=== PATIENT | female | born 1980 | race Caucasian/White ===

== ENCOUNTER 2021-06-23 22:32 | Inpatient (IN) | payer MEDICAID ==
[~2021-06-23] VITALS: Ht 157.5 cm; Wt 74.1 kg
[2021-06-23] MEDS ORDERED: NS IV 1000 ML 1,000 ML IV SCH (22:45)
[2021-06-23] MEDS ORDERED: POTASSIUM CL 10MEQ/50ML IVPB 50 ML IV SCH (22:45)
[2021-06-24] VITALS (7 sets, daily range): BP systolic 90–108; BP diastolic 55–69
--- OUTSIDE RECORDS SUMMARY | 2021-06-24 00:29 | XMS REPORT | Clinical Summary ---
Author Author [facility] Organization [facility] Address Unknown Phone Unavailable Care Team Providers Care Tariff Clerk Name Role Phone Hermila Quezada PCP Source Comments Some departments are not documenting in the electronic medical record. If you d o not see the information that you expected, contact Release of Information in [facility] [employer] Information Management department at [phone] for further assistan ce in locating additional records.[facility] Allergies No Known Active Allergies Medications End Date Status Medication Sig Dispensed Refills Start Date Active insulin detemir U-100(+) Inject 10 mL 0 0 (LEVEMIR U-100 INSULIN) fifteen Units 1 100 unit/mL vial under the skin twice daily. Active insulin aspart U-100 Inject twelve 45 mL 0 (NOVOLOG FLEXPEN) 100 Units under 1 unit/mL (3 mL) injection the skin PEN three times daily with meals. Active insulin aspart U-100 Inject zero 45 mL 0 04/04 (NOVOLOG FLEXPEN) 100 Units to six 1 unit/mL (3 mL) injection Units under PEN the skin three times daily with meals. Active blood-glucose meter Use one strip 1 each 0 2 (ONETOUCH VERIO METER) as directed 1 kit three times daily before meals. ICD-10: Type 1 Diabetes with unspecified complications ; with terminal computer operator insulin use E10.9, Z79.4 Active blood sugar diagnostic Use one strip 300 strip 0 0 (ONETOUCH VERIO TEST as directed 1 STRIPS) test strip three times daily. ICD-10: Type 1 Diabetes with unspecified complications ; with [facility] insulin use E10.9, Z79.4 Active flash glucose sensor ICD-10: Type 1 each 0 /2 (FREESTYLE SAIMA 2 1 Diabetes 1 SENSOR) with unspecified complications ; with terminal computer operator insulin use E10.9, Z79.4 Active lancets 33 gauge Use one each 300 each 0 04/04/20 2 (ONETOUCH DELICA 33 as directed 1 GUAGE) 33 gauge three times daily. 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 Resolved Problems Problem Noted Date Resolved Date DKA (diabetic ketoacidoses) 03/31/2021 04/04/2021 Hyperkalemia 03/31/2021 04/04/2021 Acute renal failure with tubular necrosis 03/31/2021 04/04/2021 Type 2 diabetes mellitus with ketoacidosis, with long -term current use of 03/31/2021 03/31/2021 insulin Encounters Care Team Description Date Type Specialty Remigio Higginbotham MD Hall, Denzel Morrissey MD DKA (diabetic ketoacidoses) ([facility]) 03/31/2021 Hospital Intensive Care - Encounter 04/04/2021 03/31/2021 Travel from Last 3 Months Medical History Medical History Date Comments Type 1 diabetes (HCC) Social History Date Tobacco Use Types Packs/Day Years Used Never Assessed Sex Assigned at Date Recorded Not on file Last Filed Vital Signs Reading Time Taken Comments Vital Sign 108/82 04/04/2021 8:00 AM CDT Blood Pressure 68 04/04/2021 4:00 AM CDT Pulse 36.6 C (97.8 F) 04/04/2021 8:00 AM CDT Temperature - - Respiratory Rate 97% 04/04/2021 8:00 AM CDT Oxygen Saturation - - Inhaled Oxygen Concentration 46.8 kg (103 lb 2.8 oz) 03/31/2021 2:38 PM CDT Weight 165.1 cm (5' 5") 03/31/2021 2:38 PM CDT estimated Height 17.17 03/31/2021 2:38 PM CDT Body Mass Index Plan of Treatment Health Maintenance Due Date Last Done Comments HIV SCREENING 1995 DTAP/TDAP VACCINES (1 - 1998 Tdap) HEPATITIS C SCREENING 1998 PHYSICAL (COMPREHENSIVE) 1998 EXAM CERVICAL CANCER SCREENING 2001 BREAST CANCER SCREENING 2020 INFLUENZA VACCINE 07/12/2021 Procedures Comments Procedure Name Priority Date/Time Associated Diag nosis POC GLUCOSE 04/04/2021 11:57 AM CDT POC GLUCOSE 04/04/2021 8:30 AM CDT POC GLUCOSE 04/04/2021 5:05 AM CDT HC MAGNESIUM Routine 04/04/2021 5:05 AM CDT HC PHOSPHOROUS, SERUM Routine 04/04/2021 5:05 AM CDT HC COMPREHENSIVE Routine 04/04/2021 METABOLIC PANEL 5:05 AM CDT HC CBC W/ AUTOMATED DIFF STAT 04/04/2021 5:05 AM CDT POC GLUCOSE 04/03/2021 9:29 PM CDT POC GLUCOSE 04/03/2021 6:26 PM CDT HC MAGNESIUM Routine 04/03/2021 4:55 PM CDT HC PHOSPHOROUS, SERUM Routine 04/03/2021 4:55 PM CDT HC COMPREHENSIVE Routine 04/03/2021 METABOLIC PANEL 4:55 PM CDT POC GLUCOSE 04/03/2021 4:52 PM CDT POC GLUCOSE 04/03/2021 11:00 AM CDT POC GLUCOSE 04/03/2021 6:56 AM CDT HC MAGNESIUM Routine 04/03/2021 4:58 AM CDT HC PHOSPHOROUS, SERUM Routine 04/03/2021 4:58 AM CDT HC COMPREHENSIVE Routine 04/03/2021 METABOLIC PANEL 4:58 AM CDT HC CBC W/ AUTOMATED DIFF STAT 04/03/2021 4:58 AM CDT POC GLUCOSE 04/02/2021 9:59 PM CDT POC GLUCOSE 04/02/2021 4:49 PM CDT HC MAGNESIUM Routine 04/02/2021 4:14 PM CDT HC PHOSPHOROUS, SERUM Routine 04/02/2021 4:14 PM CDT HC COMPREHENSIVE Routine 04/02/2021 METABOLIC PANEL 4:14 PM CDT POC GLUCOSE 04/02/2021 12:08 PM CDT BASIC METABOLIC PANEL STAT 04/02/2021 10:06 AM CDT HC MAGNESIUM Routine 04/02/2021 10:06 AM CDT HC PHOSPHOROUS, SERUM Routine 04/02/2021 10:06 AM CDT POC GLUCOSE 04/02/2021 8:16 AM CDT POC GLUCOSE 04/02/2021 6:52 AM CDT POC GLUCOSE 04/02/2021 6:15 AM CDT HC BASIC METABOLIC PANEL STAT 04/02/2021 6:15 AM CDT HC MAGNESIUM Routine 04/02/2021 6:15 AM CDT HC PHOSPHOROUS, SERUM Routine 04/02/2021 6:15 AM CDT POC GLUCOSE 04/02/2021 3:55 AM CDT HC PHOSPHOROUS, SERUM 04/02/2021 3:08 AM CDT HC MAGNESIUM 04/02/2021 3:08 AM CDT POC GLUCOSE 04/02/2021 3:08 AM CDT HC CBC W/ AUTOMATED DIFF STAT 04/02/2021 3:08 AM CDT HC COMPREHENSIVE Routine 04/02/2021 METABOLIC PANEL 3:08 AM CDT POC GLUCOSE 04/02/2021 2:00 AM CDT POC GLUCOSE 04/02/2021 12:57 AM CDT POC GLUCOSE 04/02/2021 12:07 AM CDT POC GLUCOSE 04/01/2021 11:04 PM CDT BASIC METABOLIC PANEL STAT 04/01/2021 10:20 PM CDT HC MAGNESIUM Routine 04/01/2021 10:20 PM CDT HC PHOSPHOROUS, SERUM Routine 04/01/2021 10:20 PM CDT POC GLUCOSE 04/01/2021 10:05 PM CDT POC GLUCOSE 04/01/2021 8:58 PM CDT POC GLUCOSE 04/01/2021 8:11 PM CDT POC GLUCOSE 04/01/2021 6:47 PM CDT POC GLUCOSE 04/01/2021 5:31 PM CDT HC BASIC METABOLIC PANEL STAT 04/01/2021 5:27 PM CDT HC MAGNESIUM Routine 04/01/2021 5:27 PM CDT HC PHOSPHOROUS, SERUM Routine 04/01/2021 5:27 PM CDT POC GLUCOSE 04/01/2021 4:17 PM CDT POC GLUCOSE 04/01/2021 3:16 PM CDT POC GLUCOSE 04/01/2021 2:12 PM CDT BASIC METABOLIC PANEL STAT 04/01/2021 2:11 PM CDT HC MAGNESIUM Routine 04/01/2021 2:11 PM CDT HC PHOSPHOROUS, SERUM Routine 04/01/2021 2:11 PM CDT POC GLUCOSE 04/01/2021 12:56 PM CDT POC GLUCOSE 04/01/2021 11:59 AM CDT HC BASIC METABOLIC PANEL Add on 04/01/2021 10:12 AM CDT POC GLUCOSE 04/01/2021 10:12 AM CDT HC MAGNESIUM Routine 04/01/2021 10:12 AM CDT HC PHOSPHOROUS, SERUM Routine 04/01/2021 10:12 AM CDT POC GLUCOSE 04/01/2021 8:11 AM CDT POC GLUCOSE 04/01/2021 6:52 AM CDT HC BETA-HCG; QUANT Add on 04/01/2021 6:01 AM CDT HC LIPASE Add on 04/01/2021 6:01 AM CDT POC GLUCOSE 04/01/2021 6:01 AM CDT HC MAGNESIUM Routine 04/01/2021 6:01 AM CDT HC PHOSPHOROUS, SERUM Routine 04/01/2021 6:01 AM CDT BASIC METABOLIC PANEL Routine 04/01/2021 6:01 AM CDT POC GLUCOSE 04/01/2021 5:06 AM CDT POC GLUCOSE 04/01/2021 3:56 AM CDT POC GLUCOSE 04/01/2021 2:58 AM CDT HC CBC W/ AUTOMATED DIFF 04/01/2021 1:58 AM CDT POC GLUCOSE 04/01/2021 1:58 AM CDT HC MAGNESIUM Routine 04/01/2021 1:58 AM CDT HC PHOSPHOROUS, SERUM Routine 04/01/2021 1:58 AM CDT HC BASIC METABOLIC PANEL Routine 04/01/2021 1:58 AM CDT POC GLUCOSE 04/01/2021 1:02 AM CDT POC GLUCOSE 04/01/2021 12:01 AM CDT POC GLUCOSE 03/31/2021 10:56 PM CDT HC MAGNESIUM Routine 03/31/2021 9:50 PM CDT HC PHOSPHOROUS, SERUM Routine 03/31/2021 9:50 PM CDT BASIC METABOLIC PANEL Routine 03/31/2021 9:50 PM CDT CHEST SINGLE VIEW STAT 03/31/2021 5:59 PM CDT HC ALCOHOL Routine 03/31/2021 5:50 PM CDT TROPONIN-I Routine 03/31/2021 5:50 PM CDT HC MAGNESIUM Routine 03/31/2021 5:50 PM CDT HC PHOSPHOROUS, SERUM Routine 03/31/2021 5:50 PM CDT HC BASIC METABOLIC PANEL Routine 03/31/2021 5:[address] HEAD WO CONTRAST Routine 03/31/2021 4:32 PM CDT HC BLOOD Routine 03/31/2021 GASES;(CALCULATED 02) 3:29 PM CDT HC LACTIC ACID - BG Routine 03/31/2021 SYRINGE 3:29 PM CDT HC OSMOLALITY-URINE Add on 03/31/2021 2:30 PM CDT HC SODIUM-URINE Add on 03/31/2021 2:30 PM CDT HC CREATININE-URINE Add on 03/31/2021 2:30 PM CDT HC OPIATES 300, PTUDS Routine 03/31/2021 2:30 PM CDT HC OXYCODONE URINE SCREEN Routine 03/31/2021 2:30 PM CDT HC METHADONE URINE SCREEN Routine 03/31/2021 2:30 PM CDT HC PHENCYCLIDINES; QUAL Routine 03/31/2021 2:30 PM CDT HC OPIATES; QUAL Routine 03/31/2021 2:30 PM CDT HC COCAINE; QUAL Routine 03/31/2021 2:30 PM CDT HC CANNABINOIDS; QUAL Routine 03/31/2021 2:30 PM CDT HC BENZODIAZEPINES, QUAL Routine 03/31/2021 2:30 PM CDT HC BARBITURATES Routine 03/31/2021 2:30 PM CDT HC AMPHETAMINES QUAL, Routine 03/31/2021 URINE 2:30 PM CDT UA REFLEX LABEL Routine 03/31/2021 2:30 PM CDT URINALYSIS MICROSCOPIC Routine 03/31/2021 REFLEX TO CULTURE 2:30 PM CDT HC URINALYSIS UAR Routine 03/31/2021 2:30 PM CDT COVID-19 (SARS-COV-2) PCR STAT 03/31/2021 2:10 PM CDT CULTURE-BLOOD Routine 03/31/2021 W/SENSITIVITY 2:10 PM CDT POC GLUCOSE 03/31/2021 2:04 PM CDT HC CBC W/ AUTOMATED DIFF Add on 03/31/2021 2:00 PM CDT HC PROLCALCITONIN (PROCA) Add on 03/31/2021 2:00 PM CDT HC TRIGLYCERIDE Add on 03/31/2021 2:00 PM CDT HC ACETAMINOPHEN(TYLENOL) Add on 03/31/2021 2:00 PM CDT HC TRICYCLIC SCREEN, Add on 03/31/2021 BLOOD; QUAL 2:00 PM CDT HC SALICYLATE Add on 03/31/2021 2:00 PM CDT HC CK(CPK OR CREATINE Specimen 03/31/2021 KINASE) in Lab 2:00 PM CDT HC TROPONIN-I Routine 03/31/2021 2:00 PM CDT HC LIPASE Routine 03/31/2021 2:00 PM CDT HC BETA HYDROXYBUTYRATE Routine 03/31/2021 2:00 PM CDT HC MAGNESIUM Routine 03/31/2021 2:00 PM CDT HC PHOSPHOROUS, SERUM Routine 03/31/2021 2:00 PM CDT HC COMPREHENSIVE Routine 03/31/2021 METABOLIC PANEL 2:00 PM CDT HC HEMOGLOBIN A1C Routine 03/31/2021 2:00 PM CDT CULTURE-BLOOD Routine 03/31/2021 W/SENSITIVITY 2:00 PM CDT from Last 3 Months Results * POC GLUCOSE (04/04/2021 11:57 AM CDT) Only the most recent of 42 results within the time period is included. Glucose, POC 219 (H) 70 - 100 MG/DL [facility] Specimen Performing Organization Address City/[facility]/ZIP Code P candida Number [facility] [address] [place] [address] * CBC AND DIFF (04/04/2021 5:05 AM CDT) Only the most recent of 5 results within the time period is included. Pathologist [facility] White Blood 6.4 4.5 - 11.0 K/UL [facility] Cells RBC 4.08 4.0 - 5.0 M/UL [facility] Hemoglobin 11.9 (L) 12.0 - 15.0 GM/DL [facility] Hematocrit 35.2 (L) 36 - 45 % [facility] MCV 86.2 80 - 100 FL [facility] MCH 29.2 26 - 34 PG [facility] MCHC 33.9 32.0 - 36.0 G/DL [facility] RDW 14.2 11 - 15 % [facility] Platelet Count 215 150 - 400 K/UL [facility] MPV 7.4 7 - 11 FL [facility] Neutrophils 57 41 - 77 % [facility] Lymphocytes 33 24 - 44 % [facility] Monocytes 6 4 - 12 % [facility] Eosinophils 3 0 - 5 % [facility] Basophils 1 0 - 2 % [facility] Absolute 3.65 1.8 - 7.0 K/UL [facility] Neutrophil Count Absolute Lymph 2.14 1.0 - 4.8 K/UL [facility] Count Absolute 0.41 0 - 0.80 K/UL [facility] Monocyte Count Absolute 0.19 0 - 0.45 K/UL [facility] Eosinophil Count Absolute 0.05 0 - 0.20 K/UL [facility] Basophil Count Specimen Blood Performing Organization Address City/State/ZIP Code P candida Number [facility] [address] [place] [address] * PHOSPHORUS (04/04/2021 5:05 AM CDT) Only the most recent of 16 results within the time period is included. Phosphorus 2.9 2.0 - 4.5 MG/DL [facility] Specimen Blood Performing Organization Address City/State/ZIP Code P candida Number [facility] [address] [place] [address] * MAGNESIUM (04/04/2021 5:05 AM CDT) Only the most recent of 16 results within the time period is included. Magnesium 2.1 1.6 - 2.6 mg/dL [facility] Specimen Blood Performing Organization Address City/State/ZIP Code P candida Number [facility] [address] [place] [address] * COMPREHENSIVE METABOLIC PANEL (04/04/2021 5:05 AM CDT) Only the most recent of 6 results within the time period is included. Sodium 142 137 - 147 MMOL/L [facility] Potassium 3.8 3.5 - 5.1 MMOL/L [facility] Chloride 105 98 - 110 MMOL/L [facility] Glucose 192 (H) 70 - 100 MG/DL [facility] Blood Urea 11 7 - 25 MG/DL [facility] Nitrogen Creatinine 0.65 0.4 - 1.00 MG/DL [facility] Calcium 8.3 (L) 8.5 - 10.6 MG/DL [facility] Total Protein 5.6 (L) 6.0 - 8.0 G/DL [facility] Total Bilirubin 0.3 0.3 - 1.2 MG/DL [facility] Albumin 2.9 (L) 3.5 - 5.0 G/DL [facility] Alk Phosphatase 163 (H) 25 - 110 U/L [facility] AST (SGOT) 29 7 - 40 U/L [facility] CO2 29 21 - 30 MMOL/L [facility] ALT (SGPT) 46 7 - 56 U/L [facility] Anion Gap 8 3 - 12 [facility] eGFR Non >60 >60 mL/min [facility] Comment: [place] The eGFR is not validated f or use in drug dosing adjustments. Continue to use estimated creatinine clearance per dosing reference text. Please contact the Clinical Pharmacist for questions. eGFR >60 >60 mL/min [facility] [place] Comment: The eGFR is not validated for use in drug dosing adjustments. Continue to use estimated creatinine clearance per dosing reference text. Please contact the Clinical Pharmacist for questions. Specimen Blood Performing Organization Address City/[facility]/ZIP Code P candida Number [facility] [address] [place] [address] * BASIC METABOLIC PANEL (04/02/2021 10:06 AM CDT) Only the most recent of 10 results within the time period is included. Sodium 138 137 - 147 MMOL/L [facility] Potassium 4.7Comment: SLT HEMOLYSIS 3.5 - 5.1 MMOL/L [facility] Chloride 107 98 - 110 MMOL/L [facility] CO2 22 21 - 30 MMOL/L [facility] Anion Gap 9 3 - 12 [facility] Glucose 161 (H) 70 - 100 MG/DL [facility] Blood Urea 9 7 - 25 MG/DL [facility] Nitrogen Creatinine 0.67 0.4 - 1.00 MG/DL [facility] Calcium 7.8 (L) 8.5 - 10.6 MG/DL [facility] eGFR Non >60 >60 mL/min [facility] Comment: [place] The eGFR is not validated f or use in drug dosing adjustments. Continue to use estimated creatinine clearance per dosing reference text. Please contact the Clinical Pharmacist for questions. eGFR >60 >60 mL/min [facility] [place] Comment: The eGFR is not validated for use in drug dosing adjustments. Continue to use estimated creatinine clearance per dosing reference text. Please contact the Clinical Pharmacist for questions. Specimen Blood Performing Organization Address [facility]/ZIP Code P candida Number [facility] [address] [place] [address] * BETA-HCG (04/01/2021 6:01 AM CDT) Beta-HCG,Serum 1 <5 U/L [facility] Specimen Performing Organization Address City/[facility]/ZIP Code P candida Number [facility] [address] [place] [address] * LIPASE (04/01/2021 6:01 AM CDT) Only the most recent of 2 results within the time period is included. Lipase 80 11 - 82 U/L [facility] Specimen Performing Organization Address City/[facility]/ZIP Code P candida Number [facility] [address] [place] [address] * CHEST SINGLE VIEW (03/31/2021 5:59 PM CDT) Specimen Impressions Performed At Initial chest radiograph demonstrates no acute abnorm ality. [facility] RESULTS Approved by Jack Foster M.D. on 04/01 9:13 AM By my electronic signature, I attest th at I have personally reviewed the images for this examination and formulated the interpretations and opinions expressed in this report Finalized by Deshawn Bonner M.D. on 2020 9:52 AM. Dictated by Jack Foster M.D. on 04/01/2021 8:23 AM. Narrative Performed At CHEST SINGLE VIEW [facility] RES[facility] INDICATION: DKA. COMPARISON: None FINDINGS: Support Devices: None. Lungs/Pleura: No pleural effusion, pneu mothorax, or focal consolidation. Heart and Mediastinum: The cardiomedias tinal silhouette is normal. Procedure Note Interface, Radiant Results - 04/01/2021 9:55 AM CDT CHEST SINGLE VIEW INDICATION: DKA. COMPARISON: None FINDINGS: Support Devices: None. Lungs/Pleura: No pleural effusion, pneumothorax, or focal consolidation. Heart and Mediastinum: The cardiomediastinal silhouette is normal. IMPRESSION Initial chest radiograph demonstrates no acute abnormality. Approved by Jack Foster M.D. on 04/01/2021 9:13 AM By my electronic signature, I attest that I have personally reviewed the images for this examination and formulated the interpretations and opinions expressed in this report Finalized by Deshawn Bonner M.D. on 04/01/2021 9:52 AM. Dictated by Jack Foster M.D. on 04/01/2021 8:23 AM. Performing Organization Address City/State/ZIP Code P candida Number [facility] RESULTS * TROPONIN-I (03/31/2021 5:50 PM CDT) Only the most recent of 2 results within the time period is included. Pathologist [facility] Troponin-I 0.01 0.0 - 0.05 NG/ML [facility] Specimen Blood Performing Organization Address City/State/ZIP Code P candida Number [facility] [address] [place] [address] * ALCOHOL LEVEL (03/31/2021 5:50 PM CDT) Alcohol <10 MG/DL [facility] Specimen Performing Organization Address City/State/ZIP Code P candida Number MAIN LAB [address] [place] [address] * CT HEAD WO CONTRAST (03/31/2021 4:32 PM CDT) Specimen Impressions Performed At 1. No acute intracranial pathology. [facility] RESULTS 2. Mild to moderate maxillary and eth moid sinus mucosal thickening. Approved by Mike Herring M.D. on 7:55 AM By my electronic signature, I attest th at I have personally reviewed the images for this examination and formulated the interpretations and opinions expressed in this report Finalized by Jose Phan M.D. on 2020 8:16 AM. Dictated by Mike Herring M.D. on 04/01/2021 7:08 AM. Narrative Performed At EXAM: CT HEAD [facility] RESULTS HISTORY: 40-year-old female, altered mental stat us. TECHNIQUE: Multiple contiguous axial im ages were obtained of the brain without intravenous contrast. COMPARISON: No prior exams available fo r comparison. FINDINGS: The ventricles and subarachnoid spaces are normal in size and configuration. There is no midline shift or mass eff ect. The diez white matter interfaces are maintained. The basal cisterns are patel nt. There is no evidence of acute intracranial hemorrhage or extra-axial fluid collection. The mastoid air cells and visualized paranasal sinuses are we ll-aerated. Mild to moderate mucosal thickening of the bilateral maxillary and ethmoid sinuses. Procedure Note Interface, Radiant Results - 04/01/2021 8:19 AM CDT EXAM: CT HEAD HISTORY: 40-year-old female, altered mental statu s. TECHNIQUE: Multiple contiguous axial images were obtained of the brain without intravenous contrast. COMPARISON: No prior exams available for comparison. FINDINGS: The ventricles and subarachnoid spaces are normal in size and configuration. There is no midline shift or mass effect. The diez white matter interfaces are maintained. The basal cisterns are patent. There is no evidence of acute intracranial hemorrhage or extra-axial fluid collection. The mastoid air cells and visualized paranasal sinuses are well-aerated. Mild to moderate mucosal thickening of the bilateral maxillary and ethmoid sinuses. IMPRESSION 1. No acute intracranial pathology. 2. Mild to moderate maxillary and ethmo id sinus mucosal thickening. Approved by Mike Herring M.D. on 04/01/2021 7:55 AM By my electronic signature, I attest that I have personally reviewed the images for this examination and formulated the interpretations and opinions expressed in this report Finalized by Jose Phan M.D. on 04/01/2021 8:16 AM. Dictated by Mike Herring M.D. on 04/01/2021 7:08 AM. Performing Organization Address [facility] Code P candida Number RAD RESULTS * LACTIC ACID (BG - RAPID LACTATE) (03/31/2021 3:29 PM CDT) Pathologist [facility] Lactic Acid,BG 2.7 (H) 0.5 - 2.0 MMOL/L [facility] Specimen Blood Performing Organization Address [facility] P candida Number MAIN LAB [address] [place] [address] * BLOOD GASES, ARTERIAL (03/31/2021 3:29 PM CDT) [facility] pH-Arterial 7.16 (LL) 7.35 - 7.45 MAIN LAB Comment: CRITICAL VALUE CALLED TO AND READ BACK BY/TIME/TECH RN L MENAHGA/[id number]/[id number] pCO2-Arterial 14 (LL) 35 - 45 [facility] MAIN LAB Comment: CRITICAL VALUE CALLED TO AND READ BACK BY/TIME/TECH RN L MENAHGA/153/2412 pO2-Arterial 118 (H) 80 - 100 [facility] MAIN LAB Base 23.0 MMOL/L MAIN LAB Deficit-Arteria l O2 Sat-Arterial 97.5 95 - 99 % MAIN LAB Bicarbonate-ART 8.4 (L) 21 - 28 MMOL/L MAIN [facility] -[place] Specimen Blood, arterial - Blood Performing Organization Address [facility] P candida Number MAIN LAB [address] [place] [address] * UA REFLEX LABEL (03/31/2021 2:30 PM CDT) Pathologist [facility] UA Reflex Criteria for reflex to culture [facility] Culture are WBC>10, Positive Nitrit e, and/or >=+1 leukocytes. If quantity is not sufficient, an addendum will follow. Specimen Urine Performing Organization Address [facility] P candida Number MAIN LAB [address] [place] [address] * URINALYSIS MICROSCOPIC REFLEX TO CULTURE (03/31/2021 2:30 PM CDT) WBCs,UA 0-2 0 - 2 /HPF [facility] RBCs,UA 0-2 0 - 3 /HPF [facility] Comment,UA Criteria for reflex to culture [facility] are WBC>10, Positive Nitrite, and/or >=+1 leukocytes. If quantity is not sufficient, an addendum will follow. MucousUA TRACE [facility] Squamous 0-2 0 - 5 [facility] Epithelial Cells Specimen Urine Performing Organization Address [facility] P candida Number [facility] [address] [place] [id number] * URINALYSIS DIPSTICK REFLEX TO CULTURE (03/31/2021 2:30 PM CDT) Color,UA STRAW [facility] Turbidity,UA 1+ (A) CLEAR-CLEAR [facility] Specific 1.023 1.003 - 1.035 [facility] [place]-Urine pH,UA 6.0 5.0 - 8.0 [facility] Protein,UA 2+ (A) NEG-NEG [facility] Glucose,UA 3+ (A) NEG-NEG [facility] Ketones,UA 2+ (A) NEG-NEG [facility] Bilirubin,UA NEG NEG-NEG [facility] Blood,UA NEG NEG-NEG [facility] Urobilinogen,UA NORMAL NORM-NORMAL [facility] Nitrite,UA NEG NEG-NEG [facility] Leukocytes,UA NEG NEG-NEG [facility] Urine Ascorbic NEG NEG-NEG [facility] Acid, UA Specimen Urine Performing Organization Address [facility] P candida Number [facility] [address] [place] [address] * OPIATES 300 OR GREATER-URINE RANDOM (03/31/2021 2:30 PM CDT) Opiates 300 NEG NEG-NEG [facility] Comment: RESULTS WERE OBTAINED BY IMMUNOASSAY AND ARE PRESUMPTIVE ONLY. POSITIVE INDICATES THE PRESENCE OF SUBSTANCE WITH CHARACTERISTICS SIMILAR TO DRUG-DRUG CLASS OR METABOLITE IN CONC. EQUAL TO OR EXCEEDING VALUES LISTED. OPIATES 300 NG/ML Specimen Urine Performing Organization Address [facility] P candida Number [facility] [address] [place] [address] * METHADONE-URINE SCREEN (03/31/2021 2:30 PM CDT) Methadone NEG NEG-NEG MAIN LAB Comment: RESULTS WERE OBTAINED BY IMMUNOASSAY AND ARE PRESUMPTIVE ONLY. POSITIVE INDICATES THE PRESENCE OF SUBSTANCE WITH CHARACTERISTICS SIMILAR TO DRUG-DRUG CLASS OR METABOLITE IN CONC. EQUAL TO OR EXCEEDING VALUES LISTED. METHADONE 300 NG/ML Specimen Urine Performing Organization Address City/[facility] Code P candida Number [facility] [address] [place] [address] * SODIUM-URINE RANDOM (03/31/2021 2:30 PM CDT) Sodium, Random 44 MMOL/L MAIN LAB Specimen Performing Organization Address [facility] Code P candida Number [facility] [address] [place] [address] * PHENCYCLIDINES-URINE RANDOM (03/31/2021 2:30 PM CDT) Phencyclidine NEG NEG-NEG MAIN LAB (PCP) Comment: RESULTS WERE OBTAINED BY [employer] AND ARE PRESUMPTIVE ONLY. POSITIVE INDICATES THE PRESENCE OF SUBSTANCE WITH CHARACTERISTICS SIMILAR TO DRUG-DRUG CLASS OR METABOLITE IN CONC. EQUAL TO OR EXCEEDING VALUES LISTED. PHENCYCLIDINE (PCP) 25 NG/ML Specimen Urine - Urine Performing Organization Address City/[facility] Code P candida Number MAIN LAB [address] [place] [address] * OXYCODONE URINE SCREEN (03/31/2021 2:30 PM CDT) Oxycodone, NEG NEG-NEG MAIN LAB Urine Comment: RESULTS WERE OBTAINED BY IMMUNOASSAY AND ARE PRESUMPTIVE ONLY. POSITIVE INDICATES THE PRESENCE OF SUBSTANCE WITH CHARACTERISTICS SIMILAR TO DRUG-DRUG CLASS OR METABOLITE IN CONC. EQUAL TO OR EXCEEDING VALUES LISTED. OXYCODONE 300 NG/ML Specimen Urine - Urine Performing Organization Address City/[facility]/ZIP Code P candida Number [facility] MAIN LAB [address] [place] [address] * OSMOLALITY-URINE RANDOM (03/31/2021 2:30 PM CDT) Osmolality-Urin 519 50 - 1,400 MOS/KG [facility] MAIN LAB e Specimen Performing Organization Address City/[facility] Code P candida Number [facility] MAIN [facility] [address] [place] [address] * OPIATES-URINE RANDOM (03/31/2021 2:30 PM CDT) Opiates-Urine NEG NEG-NEG MAIN LAB Comment: RESULTS WERE OBTAINED BY IMMUNOASSAY AND ARE PRESUMPTIVE ONLY. POSITIVE INDICATES THE PRESENCE OF SUBSTANCE WITH CHARACTERISTICS SIMILAR TO DRUG-DRUG CLASS OR METABOLITE IN CONC. EQUAL TO OR EXCEEDING VALUES LISTED. OPIATES 2000 NG/ML Specimen Urine - Urine Performing Organization Address City/[facility] Code P candida Number MAIN LAB [address] [place] [address] * CREATININE-URINE RANDOM (03/31/2021 2:30 PM CDT) Creatinine, 17 MG/DL MAIN LAB Random Specimen Performing [facility] P candida Number MAIN LAB [address] [place] [address] * COCAINE-URINE RANDOM (03/31/2021 2:30 PM CDT) Cocaine-Urine NEG NEG-NEG MAIN LAB Comment: RESULTS WERE OBTAINED BY IMMUNOASSAY AND ARE PRESUMPTIVE ONLY. POSITIVE INDICATES THE PRESENCE OF SUBSTANCE WITH CHARACTERISTICS SIMILAR TO DRUG-DRUG CLASS OR METABOLITE IN CONC. EQUAL TO OR EXCEEDING VALUES LISTED. COCAINE 300 NG/ML Specimen Urine - Urine Performing Organization [facility] P candida Number MAIN LAB [address] [place] [address] * CANNABINOIDS-URINE RANDOM (03/31/2021 2:30 PM CDT) THC NEG NEG-NEG MAIN LAB Comment: RESULTS WERE OBTAINED BY IMMUNOASSAY AND ARE PRESUMPTIVE ONLY. POSITIVE INDICATES THE PRESENCE OF SUBSTANCE WITH CHARACTERISTICS SIMILAR TO DRUG-DRUG CLASS OR METABOLITE IN CONC. EQUAL TO OR EXCEEDING VALUES LISTED. CANNABINOIDS 50 NG/ML Specimen Urine - Urine Performing Organization Address [facility] Code P candida Number MAIN LAB [address] [place] [address] * BENZODIAZEPINES-URINE RANDOM (03/31/2021 2:30 PM CDT) Benzodiazepines NEG NEG-NEG MAIN LAB Comment: RESULTS WERE OBTAINED BY IMMUNOASSAY AND ARE PRESUMPTIVE ONLY. POSITIVE INDICATES THE PRESENCE OF SUBSTANCE WITH CHARACTERISTICS SIMILAR TO DRUG-DRUG CLASS OR METABOLITE IN CONC. EQUAL TO OR EXCEEDING VALUES LISTED. BENZODIAZEPINES 200 NG/ML Specimen Urine - Urine Performing Organization [facility] P candida Number MAIN LAB [address] [place] [address] * BARBITURATES-URINE RANDOM (03/31/2021 2:30 PM CDT) Barbiturates,Ur NEG NEG-NEG MAIN LAB ine Comment: RESULTS WERE OBTAINED BY IMMUNOASSAY AND ARE PRESUMPTIVE ONLY. POSITIVE INDICATES THE PRESENCE OF SUBSTANCE WITH CHARACTERISTICS SIMILAR TO DRUG-DRUG CLASS OR METABOLITE IN CONC. EQUAL TO OR EXCEEDING VALUES LISTED. BARBITURATES 200 NG/ML Specimen Urine - Urine Performing Organization Address City/[facility] P candida Number MAIN LAB [address] [place] [address] * AMPHETAMINES-URINE RANDOM (03/31/2021 2:30 PM CDT) Pathologist [facility] Amphetamines POS (A) NEG-NEG [facility] LAB Comment: RESULTS WERE OBTAINED BY IMMUNOASSAY AND ARE PRESUMPTIVE ONLY. POSITIVE INDICATES THE PRESENCE OF SUBSTANCE WITH CHARACTERISTICS SIMILAR TO DRUG-DRUG CLASS OR METABOLITE IN CONC. EQUAL TO OR EXCEEDING VALUES LISTED. AMPHETAMINES 1000 NG/ML Specimen Urine - Urine Performing Organization Address City/[facility] P candida Number [facility] LAB [address] [place] [address] * COVID-19 (SARS-COV-2) PCR (03/31/2021 2:10 PM CDT) Pathologist [facility] COVID-19 FLOCKED SWAB [facility] (SARS-CoV-2) NASOPHARYNGEAL PCR Source COVID-19 NOT DETECTED DN-NOT DETECTED [facility] (SARS-CoV-2) Comment: PCR This assay is designed to detect the N2 and E genes of SARS-CoV-2 using nucleic acid amplification. A Not Detected result does not preclude the possibility of SARS-CoV-2 infection since the adequacy of sample collection and/or low viral burden may result in the presence of viral nucleic acids below the analytical sensitivity of this test method. Test results should be used along with other clinical and laboratory data in making the diagnosis. Test parameters have not been validated for screening in asymptomatic patients. This test has not been FDA cleared or approved. This test is authorized for use under the FDA Emergency Use Authorization and performance characteristics have been verified by the [facility] clinical laboratory. Fact sheet for providers: https://www.fda.gov/media/1743 13/download Fact sheet for patients: https://www.fda.gov/media/7635 12/download Specimen Flocked Swab - Nasopharyngeal Performing Organization Address City/State/ZIP Code P candida Number [facility] MAIN [facility] [address] [place] [phone] * CULTURE-BLOOD W/SENSITIVITY (03/31/2021 2:10 PM CDT) Only the most recent of 2 results within the time period is included. Battery Name BLOOD CULTURE [facility] MAIN [facility] Report Status FINAL 04/06/2021 [facility] MAIN LAB Specimen BLOOD ARM, RIGHT ARTERIAL LINE [facility] LACHELLE N LAB Description Special NONE [facility] MA[facility] Requests Culture NO GROWTH 5 DAYS [facility] MAIN LAB Specimen Blood - Arm, Right Performing Organization Address City/[facility]/ZIP Code P candida Number [facility] MAIN LAB [address] [place] [phone] * PROCALCITONIN (03/31/2021 2:00 PM CDT) Procalcitonin 3.32 ng/mL [facility]IN [facility] Comment: Suspected Lower Respiratory Tract Infection: >0.25 ng/mL-Increased likeihood bacterial infection Suspected Sepsis: >0.5 ng/mL-Increased likelihood sepsis >2.0 ng/mL-High risk of sepsis/septic shock Specimen Performing Organization Address City/[facility]/ZIP Code P candida Number [facility] MAIN [facility] [address] [place] [address] * BETA HYDROXYBUTYRATE (KETONES) (03/31/2021 2:00 PM CDT) Beta >8.0 (H) <0.3 MMOL/L MAIN LAB Hydroxybutyrate Comment: Beta hydroxybutyrate (BOHB) is the most abundant ketone (78%), followed by acetoacetate (20%) and acetone (2%). Measurement BOHB is recommended to assess ketones in DKA. Expected BOHB Results for DKA: Initial presentation high/increasing During treatment decreasing Resolved decreasing/normal Specimen Blood Performing Organization Address City/[facility]/ZIP Code P candida Number MAIN LAB [address] [place] [phone] * TRICYCLIC SCREEN (03/31/2021 2:00 PM CDT) Tricyclic NEG NEG-NEG [facility] MAIN [facility] Screen Comment: RESULTS WERE OBTAINED BY IMMUNOASSAY AND ARE PRESUMPTIVE ONLY. POSITIVE INDICATES THE PRESENCE OF SUBSTANCE WITH CHARACTERISTICS SIMILAR TO DRUG-DRUG CLASS OR METABOLITE IN CONC. EQUAL TO OR EXCEEDING VALUES LISTED. TRICYCLIC ANTIDEPRESSANTS 300 NG/ML Specimen Performing Organization Address [facility] Code P candida Number [facility] MAIN [facility] [address] [place] [address] * TRIGLYCERIDE (03/31/2021 2:00 PM CDT) Triglycerides 379 (H) <150 MG/DL [facility] MAIN [facility] Specimen Performing Organization Address [facility] P candida Number MAIN LAB [address] [place] [address] * HEMOGLOBIN A1C (03/31/2021 2:00 PM CDT) Hemoglobin A1C 13.1 (H) 4.0 - 6.0 % MAIN LAB Comment: The ADA recommends that most patients with type 1 and type 2 diabetes maintain an A1c level <7%. Specimen Blood Performing Organization Address [facility] P candida Number MAIN LAB [address] [place] [address] * CREATINE KINASE-CPK (03/31/2021 2:00 PM CDT) Creatine Kinase 144 21 - 215 U/L [facility] MAIN LAB Specimen Blood Performing Organization Address [facility] P candida Number [facility] MAIN [facility] [address] [place] [address] * ACETAMINOPHEN LEVEL (03/31/2021 2:00 PM CDT) Acetaminophen <10.0 <20.1 MCG/ML [facility] MAIN [facility] Specimen Performing Organization Address [facility] P candida Number [facility] MAIN [facility] [address] [place] [address] * SALICYLATE LEVEL (03/31/2021 2:00 PM CDT) Salicylate <2.5 2.0 - 29.0 MG/DL [facility] MAIN [facility] Specimen Performing Organization [facility] P candida Number MAIN LAB [address] [place] [address] from Last 3 Months Insurance Type Payer Benefit Subscriber ID Effective Phone Address Plan / Dates Group BCBS MEDICAID [employer] [id number] 2020-P KIM (OON) resent [id number] 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 needed
--- OUTSIDE RECORDS SUMMARY | 2021-06-24 00:29 | XMS REPORT | Clinical Summary ---
Author Author [facility] Organization [facility] Address Unknown Phone Unavailable Care Team Providers Care Refiner Operator Name Role Phone Hermila Quezada MD PCP Allergies No Known Active Allergies Medications End Date Status Medication Sig Dispensed Refills Start Date Active aspirin 81 MG EC tablet Take 1 tablet 30 tablet 0 (81 mg total) 1 by mouth daily. Active atorvastatin (LIPITOR) 10 Take 1 tablet 30 tablet 0 MG tablet (10 mg total) 1 by mouth daily. Active lisinopriL Take 1 tablet 30 tablet 0 (PRINIVIL,ZESTRIL) 2.5 MG (2.5 mg 1 tablet total) by mouth daily. Active sertraline (ZOLOFT) 50 mg Take 1 tablet 30 tablet 0 tabletIndications: (50 mg total) 1 anxiety with depression by mouth daily. Active insulin lispro (HUMALOG) Inject 1-30 50 mL 0 0 100 unit/mL Units under 1 injectionIndications: the skin 4 type 1 diabetes mellitus (four) times a day. Sliding scale Active insulin detemir U-100 Inject 12 10 mL 0 (LEVEMIR) 100 unit/mL Units under 1 injectionIndications: the skin type 1 diabetes mellitus nightly. Active Problems Problem Noted Date Type 1 diabetes mellitus with ketoacidosis without co ma 03/12/2021 Last Assessment & Plan: Formatting of this note might be differ ent from the original. A1c 12.9% on 03/12/2021, not controlled Concern for noncompliance with insulin at home Endocrinology consulted High anion gap metabolic acidosis 03/12/2021 AMS (altered mental status) 03/12/2021 Last Assessment & Plan: Formatting of this note might be differ ent from the original. Resolved, likely from DKA Continue to monitor Hyperkalemia 03/12/2021 Drug abuse 03/12/2021 Last Assessment & Plan: Formatting of this note might be differ ent from the original. UDS positive for methamphetamine Encourage cessation Depression 03/12/2021 Severe hyperglycemia due to diabetes mellitus 2020 Tachycardia 03/12/2021 Substance abuse 07/27/2020 Last Assessment & Plan: Formatting of this note might be differ ent from the original. UDS pos for metamphetamine -monitor for withdrawal sx Acute renal failure with tubular necrosis 07/27/2020 Last Assessment & Plan: Formatting of this note might be differ ent from the original. Resolved History of seizure 07/27/2020 Last Assessment & Plan: Formatting of this note might be differ ent from the original. No acute issues this admit, not on meds Would monitor Depression 07/27/2020 Last Assessment & Plan: Formatting of this note might be differ ent from the original. Continue home sertraline Acidosis, metabolic 07/27/2020 Last Assessment & Plan: Formatting of this note might be differ ent from the original. Anion gap acidosis Sec to DKA, -resolved Encephalopathy 07/27/2020 Last Assessment & Plan: Formatting of this note might be differ ent from the original. Patient very lethargic sec to DKA and s ubstance use, no seizure activity witnessed -CT head negative -expect related to substance abuse, was slightly more awake for me today Cough 07/27/2020 Last Assessment & Plan: Formatting of this note might be differ ent from the original. Leukocytosis and high risk for aspirati on -CXR negative -procal mildly up, 5 day course of abx Pneumonia of both lower lobes due to Streptococcus pn eumoniae 07/08/2020 Last Assessment & Plan: Formatting of this note might be differ ent from the original. Pneumococcal pneumonia confirmed Complicated by resp failure Continue rocephin Oxygen improved, room air Monitor procalc to determine when to co mplete course of rocephin Consider pneumovax Inability to maintain patency of airway 07/07/2020 Sedated 07/07/2020 High anion gap metabolic acidosis 07/07/2020 Severe hyperglycemia due to diabetes mellitus 2019 Metabolic acidosis 03/22/2016 Last Assessment & Plan: Formatting of this note might be differ ent from the original. Likely related to RTA, will give bicarb through gtt form till CO2 normalizes. Reduce bmp to q8h. DKA (diabetic ketoacidoses) 03/21/2016 Last Assessment & Plan: Formatting of this note might be differ ent from the original. Resolved Off insulin gtt Continue Lantus 12 U QHS Continue SSI level 3 Glucose checks Q4H Endocrinology consulted to assist due t o difficult to control glucose Patient trying to leave AMA but no ride until tomorrow, discussed that we would need more time to get her sugars under more reasonable control and that I thought she was very high risk f or getting DKA again in the future if she left AMA h/o substance abuse 03/21/2016 Last Assessment & Plan: Formatting of this note might be differ ent from the original. States she has not used meth for 2 sharron hs. Outside UDS negative. HTN (hypertension) Last Assessment & Plan: Formatting of this note might be differ ent from the original. Continue home lisinopril Acute biliary pancreatitis without infe ction or necrosis Last Assessment & Plan: Formatting of this note might be differ ent from the original. Severe nausea on presentation GB wall thickening on imaging, unsure i f passed stone Elevated lipase improving and eating so lid food monitor Resolved Problems Problem Noted Date Resolved Date Drowsiness 07/27/2020 07/27/2020 Last Assessment & Plan: Formatting of this note might be differ ent from the original. Sec to DKA and substance use, no seizur e activity She opens eyes and mumbles words Monitor mental status Hyperkalemia 07/27/2020 07/27/2020 Last Assessment & Plan: Formatting of this note might be differ ent from the original. Given 10 units of insulin regular at ou tside Recheck potassium now Acute respiratory failure with hypoxia 07/08/2020 07/11/2020 Altered mental status 07/07/2020 07/11/2020 ADOLPH (acute kidney injury) 07/07/2020 07/11/2020 Hyperkalemia 03/21/2016 03/22/2016 Last Assessment & Plan: Formatting of this note might be differ ent from the original. Outside EKG without changes. Repeat EKG now. Add bicarb to IVF's--> anticipate hyper kalemia will improve as acidosis improves. ADOLPH (acute kidney injury) 03/21/2016 03/22/2016 Last Assessment & Plan: Formatting of this note might be differ ent from the original. Cr 2.0 (at [facility] this AM), re peat Cr was 1.3 upon arrival to [facility] ICU. Leukocytosis 03/21/2016 03/22/2016 Last Assessment & Plan: Formatting of this note might be differ ent from the original. Resolved. Immunizations Name Administration Dates Next Due Influenza QIV (IM) 07/11/2020 Family History Medical History Relation Name Comments Cancer Maternal Grandmother Hypertension Mother Relation Name Status Comments Maternal Grandmother Mother Social History Date Tobacco Use Types Packs/Day Years Used Current Every Day Smoker Comments Alcohol Use Standard Drinks/Week Yes 0 (1 standard drink = 0.6 o z pure alcohol) Sex Assigned at Date Recorded Not on file Last Filed Vital Signs Reading Time Taken Comments Vital Sign 115/73 03/15/2021 7:30 AM CDT Blood Pressure 68 03/15/2021 7:30 AM CDT Pulse 36.6 C (97.9 F) 03/15/2021 7:30 AM CDT Temperature 16 03/15/2021 7:30 AM CDT Respiratory Rate 98% 03/15/2021 7:30 AM CDT Oxygen Saturation - - Inhaled Oxygen Concentration 60.1 kg (132 lb 6.4 oz) 03/15/2021 3:53 AM CDT Weight 162.6 cm (5' 4") 03/12/2021 5:00 AM CDT Height 22.73 03/12/2021 5:00 AM CDT Body Mass Index Plan of Treatment Health Maintenance Due Date Last Done Comments Diabetes Mellitus 1980 Ophthalmology Exam Spirometry # 1980 Td/Tdap# 1980 Tobacco Cessation 1980 Counseling # Depression Monitoring 1980 PHQ-9 # Pneumococcal Vaccine: 1986 Pediatrics (0 to 5 Years) and At-Risk Patients (6 to 64 Years) (1 of 4 - PCV13) Diabetes Mellitus Foot 1990 Exam COVID-19 Vaccine (1) 1992 Cervical Cancer Screening 2001 via Pap Smear Lipid Screening 03/12/2021 03/12/2020, 03/12/2017 Influenza Vaccine (#1) 2021 07/11/2020, 11/15/2015 Diabetes Mellitus 09/30/2021 03/31/2021, Hemoglobin A1C 03/31/2021, 03/12/2021, Additional history exists Results Not on filefrom Last 3 Months Insurance Type Payer Benefit Subscriber ID Effective Phone Address Plan / Dates Group MEDICAID MANAGED CARE HEALTHY [id number] 2020 -P ([place]) [facility] [place] Advance Directives For more information, please contact: [phone] 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
[2021-06-24] MEDS: 1/2 NS IV SOLUTION 1,000 ML IV SCH ×7 (00:33→23:44)
[2021-06-24] MEDS: PROPOFOL DRIP (ICU) 100 ML IV SCH ×4 (00:33→14:46)
[2021-06-24] MEDS ORDERED: VANCOMYCIN INJECTION 1,000 MG in NS (IVPB) 250 ML IV SCH (00:45)
--- NOTE | 2021-06-24 00:49 | Tele-ICU Progress Note ---
Progress Note 41 y/o with Hx of DM2, chronic Meth user, transferred from OSH. Found to be in DKA. Outside labs with bibarb<5 and Ph 6.9. Intubated as pt was agitated. WBC 40,000. No notes are available. No labs available. will reorder all labs and f/w. Fluids 2 L given, ZOsyn empiric abx given, blood and u/a with reflex done. 1. DKA 2. substance abuse 3. Elevated leukocytosis. Plan DKA protocol , obtain stat labs. full vent support. All labs ordered along with CXR and d/w the bedside nurse. Pt viewed on camera. Focused Exam Height, Weight, BMI Height: '" Weight: lbs. oz. kg; BMI Method: SHILPA KOTHARI MD Jun 24, 2021 00:49
[2021-06-24 00:57] LABS: POTASSIUM 4.8 MMOL/L (3.6-5.0)
[2021-06-24 00:58] LABS: ABG BASE EXCESS -18.8 MMOL/L (-2.5-2.5); ABG OXYGEN SATURATION 99 % (94-100); ABG PCO2 23 MMHG (35-45); ABG PO2 162 MMHG (79-93)
[2021-06-24 00:58] LABS: CALCIUM 7.6 MG/DL (8.5-10.1)
[2021-06-24 01:02] LABS: ALLENS TEST YES-POS; INSPIRED O2 40%; VENTILATOR YES
[2021-06-24 01:02] LABS: BASOPHILS # (AUTO) 0.1 10^3/uL (0.0-0.1); BASOPHILS % (AUTO) 0 % (0-10); EOSINOPHILS % (AUTO) 0 % (0-10); HEMATOCRIT 37 % (35-52); HEMOGLOBIN 12.1 g/dL (11.5-16.0); LYMPHOCYTES # (AUTO) 2.5 10^3/uL (1.0-4.0); LYMPHOCYTES % (AUTO) 7 % (12-44); MEAN CORPUSCULAR HEMOGLOBIN 28 pg (25-34); MEAN CORPUSCULAR HGB CONC 33 g/dL (32-36); MEAN CORPUSCULAR VOLUME 87 fL (80-99); MEAN PLATELET VOLUME 10.1 fL (9.0-12.2); MONOCYTES # (AUTO) 1.2 10^3/uL (0.0-1.0); MONOCYTES % (AUTO) 3 % (0-12); NEUTROPHILS # (AUTO) 33.7 10^3/uL (1.8-7.8); NEUTROPHILS % (AUTO) 87 % (42-75); PLATELET COUNT 397 10^3/uL (130-400); WHITE BLOOD COUNT 38.5 10^3/uL (4.3-11.0)
[2021-06-24 01:03] LABS: CREATININE SERUM 2.18 MG/DL (0.60-1.30)
[2021-06-24 01:04] LABS: BILIRUBIN,URINE NEGATIVE (NEGATIVE); CLARITY,URINE SL CLOUDY; COLOR,URINE YELLOW; GLUCOSE, URINE (UA) 3+ (NEGATIVE); KETONES,URINE 2+ (NEGATIVE); LEUKOCYTE ESTERASE ,URINE NEGATIVE (NEGATIVE); NITRITE,URINE NEGATIVE (NEGATIVE); PH,URINE 5.5 (5-9); PROTEIN,URINE 2+ (NEGATIVE)
[2021-06-24 01:18] LABS: PATIENT TEMP 36.5
[2021-06-24 01:19] LABS: MAGNESIUM 1.8 MG/DL (1.6-2.4)
[2021-06-24 01:20] LABS: ABG PH 7.18 (7.37-7.43); ABG TCO2 8.8 MMOL/L (21.0-31.0)
[2021-06-24 01:30] LABS: BACTERIA,URINE FEW /HPF; WHITE BLOOD CELL CASTS, URINE 0-2 /LPF
[2021-06-24 01:45] LABS: BAND NEUTROPHILS 7 %; LYMPHOCYTES % (MANUAL) 8 %; MONOCYTES % (MANUAL) 2 %; NEUTROPHILS % (MANUAL) 83 %
[2021-06-24 01:46] LABS: TOXIC GRANULATION/VACUOLAZATIO 1+
[2021-06-24] MEDS ORDERED: PIPERACILLIN/TAZOBACTAM 4.5 GM in NS (IVPB) 100 ML IV ONE (02:00)
[2021-06-24] MEDS ORDERED: VANCOMYCIN 1250 MG/NS 250 ML IVPB IV NR ×2 (02:00)
--- NOTE | 2021-06-24 02:19 | Tele-ICU Progress Note ---
Progress Note Labs and CXR reviewed. ETT and OGT in place, mild fluid overload pattern. ABG improvind. Blood cultures ordered and d/w the bedside nurse. Focused Exam Lactate Level 06/24/21 01:00: Lactic Acid Level 3.43*H Height, Weight, BMI Height: '" Weight: lbs. oz. kg; BMI Method: Lactic Acid Level Laboratory Tests Test 06/24/21 01:00 Lactic Acid Level 3.43 MMOL/L (0.50-2.00) *H SHILPA KOTHARI MD Jun 24, 2021 02:19
[2021-06-24] MEDS: POTASSIUM CL 10MEQ/50ML IVPB 50 ML IV SCH ×9 (02:35→17:21)
[2021-06-24] MEDS: D5 1/2 NS 1000 ML IV SOLUTION 1,000 ML IV SCH ×5 (02:42→18:18)
[2021-06-24] MEDS ORDERED: LORazepam INJ 2 MG/ML (ATIVAN) VIAL ONE (04:28)
[2021-06-24] MEDS ORDERED: LORazepam INJ 2 MG/ML (ATIVAN) VIAL IVP ONE (04:30)
--- NOTE | 2021-06-24 04:44 | Tele-ICU Progress Note ---
Progress Note Called by the resp therapist with low peak pressures. CXR with ETT just below the clavicles. Will advance by 1.5 cm. No Ptx. Etiology of low Peak Pr is not clear Good TV 500s. Ativan 2 mg IVP given for vent dyssynchrony. Focused Exam Lactate Level 06/24/21 01:00: Lactic Acid Level 3.43*H Height, Weight, BMI Height: '" Weight: lbs. oz. kg; 26.96 BMI Method: Lactic Acid Level Laboratory Tests Test 06/24/21 01:00 Lactic Acid Level 3.43 MMOL/L (0.50-2.00) *H SHILPA KOTHARI MD Jun 24, 2021 04:44
[2021-06-24 04:46] LABS: BASOPHILS # (AUTO) 0.1 10^3/uL (0.0-0.1); BASOPHILS % (AUTO) 0 % (0-10); EOSINOPHILS % (AUTO) 0 % (0-10); HEMATOCRIT 32 % (35-52); HEMOGLOBIN 10.8 g/dL (11.5-16.0); LYMPHOCYTES # (AUTO) 1.4 10^3/uL (1.0-4.0); LYMPHOCYTES % (AUTO) 5 % (12-44); MEAN CORPUSCULAR HEMOGLOBIN 28 pg (25-34); MEAN CORPUSCULAR HGB CONC 34 g/dL (32-36); MEAN CORPUSCULAR VOLUME 84 fL (80-99); MEAN PLATELET VOLUME 9.6 fL (9.0-12.2); MONOCYTES # (AUTO) 1.6 10^3/uL (0.0-1.0); MONOCYTES % (AUTO) 5 % (0-12); NEUTROPHILS # (AUTO) 26.2 10^3/uL (1.8-7.8); NEUTROPHILS % (AUTO) 88 % (42-75); PLATELET COUNT 327 10^3/uL (130-400); WHITE BLOOD COUNT 29.8 10^3/uL (4.3-11.0)
[2021-06-24 04:56] LABS: POTASSIUM 4.1 MMOL/L (3.6-5.0)
[2021-06-24 04:57] LABS: CALCIUM 7.2 MG/DL (8.5-10.1)
[2021-06-24 04:58] LABS: TOTAL PROTEIN 5.2 GM/DL (6.4-8.2)
[2021-06-24 05:00] LABS: BILIRUBIN,TOTAL 0.2 MG/DL (0.1-1.0)
[2021-06-24 05:01] LABS: PHOSPHORUS 2.6 MG/DL (2.3-4.7)
[2021-06-24 05:02] LABS: CREATININE SERUM 1.64 MG/DL (0.60-1.30)
[2021-06-24 05:05] LABS: MAGNESIUM 1.5 MG/DL (1.6-2.4)
[2021-06-24] MEDS: KCL 20 MEQ TAB (K-DUR) PO SCH (05:07)
[2021-06-24] MEDS: MAGNESIUM 1 GM/100 ML IVPB 100 ML IV SCH ×3 (05:07→05:20)
--- NOTE | 2021-06-24 06:30 | Diagnostic Imaging Report ---
INDICATION: Evaluation of support tubes Single portable AP view of the chest is obtained with comparison made to the study of 06/24/2021. Endotracheal tube is in place with tip at the level of thoracic inlet. Orogastric tube passes below the diaphragm. Left subclavian catheter is in stable position as well. There is no pneumothorax or consolidation. IMPRESSION: No acute abnormality or adverse change. Dictated by: Dictated on workstation # [id number]
--- NOTE | 2021-06-24 06:41 | Diagnostic Imaging Report ---
EXAMINATION: Chest radiograph, portable AP view. DATE: 06/24/2021 4:32 AM INDICATION: 41-year-old female, evaluation of support lines and tubes for interval change in position. COMPARISON: June 24, 2021 at 0109 hours. FINDINGS: The endotracheal tube is approximately 4.7 cm above the spencer. The left-sided venous line overlies the brachiocephalic vein near midline. The nasogastric tube is in the stomach. Heart size and mediastinal contours are unchanged. There is no identified pneumothorax. There is no large pleural effusion. There is no identified interval focal airspace consolidation. IMPRESSION: 1. Support lines and tubes as above without interval change. 2. No identified acute cardiopulmonary abnormality. Dictated by: Dictated on workstation # [id number]
[2021-06-24] MEDS: PIPERACILLIN/TAZOBACTAM (BULK) 4.5 GM in NS (IVPB) 100 ML IV SCH ×3 (08:20→23:47)
[2021-06-24 09:58] LABS: CALCIUM 7.5 MG/DL (8.5-10.1); CREATININE SERUM 1.46 MG/DL (0.60-1.30)
[2021-06-24] MEDS: fentaNYL DRIP PRE-MIX 250 ML IV SCH ×2 (11:00→21:51)
[2021-06-24] MEDS ORDERED: MIDAZOLAM DRIP PRE-MIX 100 ML IV SCH (12:00)
--- NOTE | 2021-06-24 13:01 | Tele-ICU Progress Note ---
Subjective Date Seen by a Provider: Jun 24, 2021 Time Seen by a Provider: 12:59 Sepsis Event Evaluation Height, Weight, BMI Height: '" Weight: lbs. oz. kg; 26.96 BMI Method: Focused Exam Lactate Level 06/24/21 01:00: Lactic Acid Level 3.43*H 06/24/21 04:38: Lactic Acid Level 2.52*H 06/24/21 07:30: Lactic Acid Level 1.72 Exam Exam Patient acknowledged, consented, and participated in this virtual visit which was conducted using real time audio/video Vital Signs Date Time Temp Pulse Resp B/P (MAP) Pulse Ox O2 Delivery O2 Flow Rate FiO2 06/24/21 12:14 94 Mechanical Ventilator 21 06/24/21 12:00 110 19 107/64 94 Mechanical Ventilator 21.00 06/24/21 11:30 37.0 06/24/21 11:00 101 21 92/53 93 Mechanical Ventilator 21.00 06/24/21 10:20 110 20 96 21 06/24/21 10:00 110 19 98/54 97 Mechanical Ventilator 21.00 06/24/21 09:13 109 96/52 06/24/21 09:00 106 20 101/56 98 Mechanical Ventilator 21.00 06/24/21 08:41 99 Mechanical Ventilator 21 06/24/21 08:00 109 19 96/52 99 Mechanical Ventilator 21.00 06/24/21 07:20 37.0 06/24/21 07:00 108 06/24/21 07:00 108 19 110/63 99 Mechanical Ventilator 21.00 06/24/21 06:20 109 20 99 21 06/24/21 06:00 109 20 107/66 99 Mechanical Ventilator 21.00 06/24/21 05:01 Mechanical Ventilator 21.00 06/24/21 05:00 109 18 101/61 100 Mechanical Ventilator 25.00 06/24/21 04:46 101 21 100 25 06/24/21 04:33 37.1 06/24/21 04:15 106 18 99/60 100 Mechanical Ventilator 25.00 06/24/21 04:00 98 Mechanical Ventilator 25 06/24/21 03:08 Mechanical Ventilator 25.00 06/24/21 03:00 108 18 92/53 98 Mechanical Ventilator 30.00 06/24/21 02:46 Mechanical Ventilator 30.00 06/24/21 02:36 105 9/13/21 02:00 105 17 93/56 98 Mechanical Ventilator 35.00 06/24/21 01:48 Mechanical Ventilator 35.00 06/24/21 01:15 102 93 93/50 50 Mechanical Ventilator 40.00 06/24/21 01:02 104 23 99 40 06/24/21 01:00 105 20 82/51 99 Mechanical Ventilator 40.00 06/24/21 00:33 98 98/63 06/24/21 00:31 94 06/24/21 00:25 36.5 98 20 98/63 100 Mechanical Ventilator 40.00 06/24/21 00:21 Mechanical Ventilator 40 I & O 06/24/21 06:59 Intake Total 2282.5 ml Output Total 1550 ml Balance 732.5 ml Height & Weight Height: '" Weight: lbs. oz. kg; 26.96 BMI Method: General Appearance: No Apparent Distress Capillary Refill: Less Than 3 Seconds Results Lab Laboratory Tests 06/24/21 00:34 06/24/21 04:38 06/24/21 09:15 Assessment/Plan Assessment/Plan (Tele-ICU Physician , Progress Note ) Available chart/ vitals / labs / Images reviewed Video assessment done using teleICU camera, rest of exam as per RN Discussed with RN , EXAM PER RN Events overnight : Afebrile I/O = pos 2 l Drips: insulin Pressors: , hemodynamically stable Sedation gtt: ( RASS ) VENT SETTINGS and ABG reviewed Not candidate for SBT today reviewed : Cardiovascular Stability / Sedation Score / FI02/PEEP / ABG / CXR Consultants: Hospital course: 06/24 - transferred from OSH with DKA , and withdrawal - on vent A/P Acute resp failure - intubated for acidosis and withdrowal - AC 20 450 +5 21 % -Etiology of low Peak Pr is not clear- follow DKA -precipitated by infection, presumed *Insulin drip continue to monitor for resolution of acidosis, AG and electro lytes. Continue hydration. ADOLPH - dehydration - cont IVF - follow closely Leukocytosis - reactive ? chest x-ray was normal , UA unremarkable - lipase pnding , blood cx done - pending - empiric ABX given high WBC - follow Pseudo Hyponatremia -improved Chronic Meth user - withdrawal: propofol to wean to versed , add fentanyl Encephalopathy - due to above + DKA - try to assess tomorrow - if doing ok - assess for extubation . moves all 4 ext Elevated TGL > 500 on addmission - versed - try get off propofol - check lipase Lines : LEFT ScL 06/24 (Central Line Necessity Reviewed) Rico: 06/24 OG: + Nutrition: NPO Analgesia: Anxiety/ delirium VTE Prophylaxis: heparin sc Stress Ulcer Prophylaxis: na Glycemic Control: Plans in collaboration with bedside consultants and IM MDs. Discussed with RN to reach out if any questions or concerns A total of 35 minutes of critical care time was devoted to this patient today, required to treat and/or prevent further deterioration of critical care condition ( as above) . YAEL WOMACK MD Jun 24, 2021 13:01
--- NOTE | 2021-06-24 13:30 | History & Physical-Hospitalist ---
History of Present Illness HPI/Chief Complaint Sakshi Alejandro is a 41-year-old female who was transferred from [facility] and admitted with DKA. She is intubated and sedated and unable to provide any history. She was reportedly positive for methamphetamine and required intubation due to agitation. She was started on an insulin drip due to diabetic ketoacidosis. Source: RN/MD Exam Limitations: clinical condition Date Seen 06/24/21 Time Seen by a Provider: 08:35 Attending Physician Sherry Thomas MD PCP Renata Conrad MD Referring Physician Date of Admission Jun 24, 2021 at 00:21 Home Medications & Allergies Home Medications Reviewed patient Home Medication Reconciliation performed by pharmacy medication reconciliations cartographic technician and/or nursing. Patients Allergies have been reviewed. Allergies Allergies Coded Allergies No Allergy Information Available (Unverified06/23/21) Past Vxheugw-Ffdnhz-Eeoukf Hx Patient Social History Smoking Status: Unknown if Ever Smoked Smokeless Tobacco Frequency: Unknown if Ever Used Use of E-Cig and/or Vaping Mauricio: Unknown if Ever Used Additional substance use comme: hx of IV drug use per ED RN Alcohol Use?: Unable to obtain Pt feels they are or have been: Unable to obtain Current Status status: Unable to obtain status: Unable to obtain Advance Directives: Unable to obtain Communicates: Unable To Communicate Is interpretation needed?: Unable to obtain Past Medical History Diabetes, Insulin dep Family Medical History Unable to obtain Review of Systems ROS-Unable to Obtain: Intubated and sedated Constitutional: see HPI Physical Exam Physical Exam Vital Signs Vital Signs - First Documented 06/24/21 06/24/21 00:21 00:25 Temp 36.5 Pulse 98 Resp 20 B/P (MAP) 98/63 Pulse Ox 100 O2 Delivery Mechanical Ventilator O2 Flow Rate 40.00 FiO2 40 Capillary Refill : Less Than 3 Seconds Height, Weight, BMI Height: '" Weight: lbs. oz. kg; 26.96 BMI Method: General Appearance: No Apparent Distress, WD/WN, Other (Intubated and sedated) Respiratory: Lungs Clear, Normal Breath Sounds, No Respiratory Distress, Other (Intubated and mechanically ventilated) Cardiovascular: No Murmur, Tachycardia Gastrointestinal: Normal Bowel Sounds, Non Tender, Soft Extremity: Normal Inspection, Non Tender, No Pedal Edema Neurologic/Psychiatric: Other (Sedated) Skin: Normal Color, Warm/Dry Results Results/Procedures Labs Laboratory Tests 06/24/21 00:34 06/24/21 04:38 06/24/21 09:15 Patient resulted labs reviewed. Imaging: Reviewed Imaging Report Assessment/Plan Admission Diagnosis Diabetic ketoacidosis Admission Status: Inpatient Order (span 2 midnights) Reason for Inpatient Admission: DKA on insulin drip Intubated Assessment and Plan Diabetic ketoacidosis Endotracheally intubated Methamphetamine intoxication Acute kidney injury Lactic acidosis Leukocytosis Urinary tract infection Blood sugar 456 on arrival, beta hydroxybutyrate 6.3, ABG with acidosis Insulin gtt Reportedly positive for methamphetamine Intubated due to agitation TeleICU consulted, appreciate assistance IV fluids UA concerning for UTI Zosyn DVT prophylaxis: Heparin Critical Care Critically Ill Patient Diagnosis/Problems Diagnosis/Problems (1) DKA, type 1 Status: Acute Qualifiers: Diabetes mellitus complication detail: without coma Qualified Codes: E10.10 - Type 1 diabetes mellitus with ketoacidosis without coma (2) Methamphetamine intoxication Status: Acute (3) Endotracheally intubated Status: Acute (4) Lactic acidosis Status: Acute (5) ADOLPH (acute kidney injury) Status: Acute (6) Obesity Status: Chronic (7) Leukocytosis Status: Acute (8) UTI (urinary tract infection) Status: Acute SHERRY THOMAS MD Jun 24, 2021 13:30
--- NOTE | 2021-06-24 13:37 | Progress Note ---
CYNTHIA MEDINA MED STUDENT 06/24/21 1337: Subjective Date Seen by a Provider: Jun 24, 2021 Time Seen by a Provider: 07:25 Subjective/Events-last exam Patient sedated and intubated. Vitals stable per bedside monitor. Review of Systems General: Other (unobtainable) HEENT: Other (unobtainable) Pulmonary: Other (unobtainable) Cardiovascular: Other (unobtainable) Gastrointestinal: Other (unobtainable) Genitourinary: Other (unobatinable) Musculoskeletal: other (unobtainable) Neurological: Other (unobtainable) Focused Exam Lactate Level 06/24/21 01:00: Lactic Acid Level 3.43*H 06/24/21 04:38: Lactic Acid Level 2.52*H 06/24/21 07:30: Lactic Acid Level 1.72 Objective Exam Last Set of Vital Signs Vital Signs Date Time Temp Pulse Resp B/P (MAP) Pulse Ox O2 Delivery O2 Flow Rate FiO2 06/24/21 13:25 106 06/24/21 12:14 94 Mechanical Ventilator 06/24/21 12:00 19 107/64 21.00 06/24/21 11:30 37.0 Capillary Refill : Less Than 3 Seconds General: Other (Sedated and Intubated. Appears older than stated age. ) HEENT: Atraumatic, Mucous Memb Moist/[place], Other (Endotracheal tube and OGT in place) Neck: Supple, No LAD Lungs: Clear to Auscultation, Normal Air Movement Heart: Regular Rate, No Murmurs Abdomen: Normal Bowel Sounds, Soft Extremities: No Clubbing, No Cyanosis, No Edema, Normal Pulses Skin: No Rashes, No Breakdown Neuro: Other (sedated) Psych/Mental Status: Other (sedated) Results Lab Laboratory Tests 06/23/21 22:36: 06/24/21 00:33: Glucometer 456*H 06/24/21 00:34: White Blood Count 38.5*H, Red Blood Count 4.27, Hemoglobin 12.1, Hematocrit 37, Mean Corpuscular Volume 87, Mean Corpuscular Hemoglobin 28, Mean Corpuscular Hemoglobin Concent 33, Red Cell Distribution Width 13.8, Platelet Count 397, Mean Platelet Volume 10.1, Immature Granulocyte % (Auto) 3, Neutrophils (%) (Auto) 87H, Lymphocytes (%) (Auto) 7L, Monocytes (%) (Auto) 3, Eosinophils (%) (Auto) 0, Basophils (%) (Auto) 0, Neutrophils # (Auto) 33.7H, Lymphocytes # (Auto) 2.5, Monocytes # (Auto) 1.2H, Eosinophils # (Auto) 0.0, Basophils # (Auto) 0.1, Immature Granulocyte # (Auto) 1.0H, Neutrophils % (Manual) 83, Lymphocytes % (Manual) 8, Monocytes % (Manual) 2, Band Neutrophils 7, Toxic Granulation 1+, Sodium Level 130L, Potassium Level 4.8, Chloride Level 103, Carbon Dioxide Level 6*L, Anion Gap 21H, Blood Urea Nitrogen 28H, Creatinine 2.18H, Estimat Glomerular Filtration Rate 25, BUN/Creatinine Ratio 13, Glucose Level 522*H, Calcium Level 7.6L, Phosphorus Level 4.0, Magnesium Level 1.8, Triglycerides Level 539H, Beta-Hydroxybutyrate (Chem panel) 6.30H 06/24/21 00:45: Blood Gas Puncture Site LT RADIAL, Blood Gas Patient Temperature 36.5, Arterial Blood pH 7.18*L, Arterial Blood Partial Pressure CO2 23L, Arterial Blood Partial Pressure O2 162H, Arterial Blood HCO3 8*L, Arterial Blood Total CO2 8.8*L, Arterial Blood Oxygen Saturation 99, Arterial Blood Base Excess -18.8L, Emmanuel Test YES-POS, Blood Gas Ventilator Setting YES, Blood Gas Inspired Oxygen 40% 06/24/21 00:52: Urine Color YELLOW, Urine Clarity SL CLOUDY, Urine pH 5.5, Urine Specific [place] 1.025H, Urine Protein 2+H, Urine Glucose (UA) 3+H, Urine Ketones 2+H, Urine Nitrite NEGATIVE, Urine Bilirubin NEGATIVE, Urine Urobilinogen 0.2, Urine Leukocyte Esterase NEGATIVE, Urine RBC (Auto) 3+H, Urine RBC 5-10H, Urine WBC 5- 10H, Urine Squamous Epithelial Cells 2-5, Urine Renal Epithelial Cells 2-5, Urine Crystals NONE, Urine Bacteria FEWH, Urine Casts PRESENT, Urine Granular Casts 5-10H, Urine White Blood Cell Casts 0-2H, Urine Mucus NEGATIVE, Urine Culture Indicated YES 06/24/21 01:00: Lactic Acid Level 3.43*H 06/24/21 01:39: Glucometer 398H 06/24/21 02:30: Glucometer 238H 06/24/21 03:25: Glucometer 225H 06/24/21 04:37: Glucometer 219H 06/24/21 04:38: White Blood Count 29.8H, Red Blood Count 3.82, Hemoglobin 10.8L, Hematocrit 32L, Mean Corpuscular Volume 84, Mean Corpuscular Hemoglobin 28, Mean Corpuscular Hemoglobin Concent 34, Red Cell Distribution Width 13.7, Platelet Count 327, Mean Platelet Volume 9.6, Immature Granulocyte % (Auto) 2, Neutrophils (%) (Auto) 88H, Lymphocytes (%) (Auto) 5L, Monocytes (%) (Auto) 5, Eosinophils (%) (Auto) 0, Basophils (%) (Auto) 0, Neutrophils # (Auto) 26.2H, Lymphocytes # (Auto) 1.4, Monocytes # (Auto) 1.6H, Eosinophils # (Auto) 0.0, Basophils # (Auto) 0.1, Immature Granulocyte # (Auto) 0.6H, Sodium Level 133L, Potassium Level 4.1, Chloride Level 108H, Carbon Dioxide Level 12L, Anion Gap 13, Blood Urea Nitrogen 24H, Creatinine 1.64H, Estimat Glomerular Filtration Rate 35, BUN/Creatinine Ratio 15, Glucose Level 223H, Lactic Acid Level 2.52*H, Calcium Level 7.2L, Corrected Calcium 8.0L, Phosphorus Level 2.6, Magnesium Level 1.5L, Total Bilirubin 0.2, Aspartate Amino Transf (AST/SGOT) 24, Alanine Aminotrans ferase (ALT/SGPT) 30, Alkaline Phosphatase 95, Total Protein 5.2L, Albumin 3.0L, Procalcitonin 10.72H 06/24/21 05:28: Glucometer 169H 06/24/21 06:28: Glucometer 180H 06/24/21 07:25: Glucometer 189H 06/24/21 07:30: Lactic Acid Level 1.72 06/24/21 08:26: Glucometer 171H 06/24/21 09:15: Sodium Level 135, Potassium Level 4.0, Chloride Level 111H, Carbon Dioxide Level 15L, Anion Gap 9, Blood Urea Nitrogen 19H, Creatinine 1.46H, Estimat Glomerular Filtration Rate 39, BUN/Creatinine Ratio 13, Glucose Level 141H, Calcium Level 7.5L 06/24/21 09:19: Glucometer 144H 06/24/21 10:24: Glucometer 135H 06/24/21 11:14: Glucometer 129H 06/24/21 12:14: Glucometer 133H 06/24/21 13:17: 06/24/21 13:18: Glucometer 136H Assessment/Plan Assessment/Plan Assess & Plan/Chief Complaint Acute respiratory failure -TV 450. FIO2 21%. PEEP 5. RR20 -required intubation due to agitation and acidosis -attempt SBT in am with possible extubation 06-25 DKA -initial sugar 522. Beta hydroxybutyrate 6.30 -insulin gtt -chem panel q4hrs -IVF's Leukocytosis -etiology unclear -blood cx's pending -cxray unremarkable -WBC 29.8 -vanco and zosyn -stanley culture Lactic acidosis -resolved ADOLPH -creatinine 1.46, trending down -continue IVF's Hypomagnesemia -replete per protocol -recheck in am Hypertriglyceredima -tri's 539 today -wean off propofol and onto versed DVT ppx -heparin subQ H/O meth use LAINE SANCHEZ DO 06/25/21 0536: Subjective Subjective/Events-last exam Patient critically ill Stable on ventilator Objective Exam General: Other (Sedated and Intubated. Appears older than stated age. ) Assessment/Plan Assessment/Plan Assess & Plan/Chief Complaint DKA management Ventilator management Supervisory-Addendum Brief Verification & Attestation Participated in pt care: history, MDM, physical Personally performed: exam, history, MDM, supervision of care Care discussed with: Medical Student Procedures: n/a Results interpretation: Verified all documentation Verification and Attestation of Medical Student E/M Service A medical student performed and documented this service in my presence. I reviewed and verified all information documented by the medical student and made modifications to such information, when appropriate. I personally performed the physical exam and medical decision making. Laine Sanchez Jun 25, 2021,05:35 CYNTHIA MEDINA MED STUDENT Jun 24, 2021 13:37 LAINE SANCHEZ DO Jun 25, 2021 05:36
[2021-06-24] MEDS ORDERED: INSU100I14 SC (13:43)
[2021-06-24] MEDS ORDERED: INSU100I29 SC (13:43)
[2021-06-24 13:50] LABS: CALCIUM 7.6 MG/DL (8.5-10.1); CREATININE SERUM 1.32 MG/DL (0.60-1.30); POTASSIUM 4.2 MMOL/L (3.6-5.0)
[2021-06-24 17:05] LABS: POTASSIUM 4.1 MMOL/L (3.6-5.0)
[2021-06-24 17:06] LABS: CALCIUM 7.4 MG/DL (8.5-10.1)
[2021-06-24 17:10] LABS: CREATININE SERUM 1.14 MG/DL (0.60-1.30)
[2021-06-24] MEDS: inSUlin ASPART (NovoLOG) 1 UNIT/0.01 ML (CHARGE PER UNIT) SC SCH (20:05)
[2021-06-25] MEDS: VANCOMYCIN 750 MG/NS 250 ML IVPB IV SCH ×2 (02:15)
[2021-06-25 02:37] VITALS: BP 103/69
[2021-06-25] MEDS: 1/2 NS IV SOLUTION 1,000 ML IV SCH ×6 (02:59→23:19)
[2021-06-25] MEDS: PROPOFOL DRIP (ICU) 100 ML IV SCH (03:11)
[2021-06-25] MEDS: inSUlin ASPART (NovoLOG) 1 UNIT/0.01 ML (CHARGE PER UNIT) SC SCH ×4 (04:24→20:08)
[2021-06-25] MEDS: D5 1/2 NS 1000 ML IV SOLUTION 1,000 ML IV SCH ×2 (04:34→14:30)
[2021-06-25 04:36] LABS: ABG BASE EXCESS -7.3 MMOL/L (-2.5-2.5); ABG OXYGEN SATURATION 98 % (94-100); ABG PCO2 39 MMHG (35-45); ABG PO2 91 MMHG (79-93); ABG TCO2 19.2 MMOL/L (21.0-31.0)
[2021-06-25 04:39] LABS: BASOPHILS % (AUTO) 0 % (0-10); EOSINOPHILS # (AUTO) 0.2 10^3/uL (0.0-0.3); EOSINOPHILS % (AUTO) 2 % (0-10); HEMATOCRIT 30 % (35-52); LYMPHOCYTES # (AUTO) 1.8 10^3/uL (1.0-4.0); LYMPHOCYTES % (AUTO) 16 % (12-44); MEAN CORPUSCULAR HEMOGLOBIN 28 pg (25-34); MEAN CORPUSCULAR HGB CONC 33 g/dL (32-36); MEAN CORPUSCULAR VOLUME 85 fL (80-99); MEAN PLATELET VOLUME 9.6 fL (9.0-12.2); MONOCYTES # (AUTO) 0.8 10^3/uL (0.0-1.0); MONOCYTES % (AUTO) 7 % (0-12); NEUTROPHILS # (AUTO) 8.4 10^3/uL (1.8-7.8); NEUTROPHILS % (AUTO) 75 % (42-75); PLATELET COUNT 259 10^3/uL (130-400); WHITE BLOOD COUNT 11.2 10^3/uL (4.3-11.0)
[2021-06-25 04:53] LABS: ALBUMIN 2.6 GM/DL (3.2-4.5); POTASSIUM 3.7 MMOL/L (3.6-5.0)
[2021-06-25 04:54] LABS: CALCIUM 7.5 MG/DL (8.5-10.1)
[2021-06-25 04:56] LABS: TOTAL PROTEIN 4.6 GM/DL (6.4-8.2)
[2021-06-25 04:57] LABS: BILIRUBIN,TOTAL 0.4 MG/DL (0.1-1.0)
[2021-06-25 04:59] LABS: ALLENS TEST YES-POS; CREATININE SERUM 0.94 MG/DL (0.60-1.30); PHOSPHORUS 1.5 MG/DL (2.3-4.7)
[2021-06-25 05:00] LABS: ABG PH 7.29 (7.37-7.43); INSPIRED O2 21%; PATIENT TEMP 37; VENTILATOR YES
[2021-06-25 05:02] LABS: MAGNESIUM 1.9 MG/DL (1.6-2.4)
[2021-06-25] MEDS: POTASSIUM CL 10MEQ/50ML IVPB 50 ML IV SCH (06:03)
[2021-06-25] MEDS: KCL 20 MEQ TAB (K-DUR) PO SCH (06:03)
[2021-06-25] MEDS: MAGNESIUM 1 GM/100 ML IVPB 100 ML IV SCH (06:03)
[2021-06-25 07:27] VITALS: BP 103/66
[2021-06-25] MEDS: PIPERACILLIN/TAZOBACTAM (BULK) 4.5 GM in NS (IVPB) 100 ML IV SCH ×3 (08:06→23:09)
--- NOTE | 2021-06-25 10:21 | Tele-ICU Progress Note ---
Subjective Date Seen by a Provider: Jun 25, 2021 Time Seen by a Provider: 10:21 Sepsis Event Evaluation Height, Weight, BMI Height: '" Weight: lbs. oz. kg; 26.96 BMI Method: Focused Exam Lactate Level 06/24/21 01:00: Lactic Acid Level 3.43*H 06/24/21 04:38: Lactic Acid Level 2.52*H 06/24/21 07:30: Lactic Acid Level 1.72 Exam Exam Patient acknowledged, consented, and participated in this virtual visit which was conducted using real time audio/video Vital Signs Date Time Temp Pulse Resp B/P (MAP) Pulse Ox O2 Delivery O2 Flow Rate FiO2 06/25/21 08:00 37.0 06/25/21 08:00 98 15 99/64 90 Mechanical Ventilator 21.00 06/25/21 07:39 93 Mechanical Ventilator 21 06/25/21 07:27 103 18 96 21 06/25/21 07:00 101 8 109/69 96 Mechanical Ventilator 21.00 06/25/21 06:52 101 06/25/21 06:00 98 13 96/62 96 Mechanical Ventilator 21.00 06/25/21 05:00 100 13 98/57 96 Mechanical Ventilator 21.00 06/25/21 04:20 37.0 06/25/21 04:00 100 14 90/58 96 Mechanical Ventilator 21.00 06/25/21 04:00 96 Mechanical Ventilator 21 06/25/21 03:00 102 12 95/62 96 Mechanical Ventilator 21.00 06/25/21 02:37 102 14 95 21 06/25/21 02:00 99 13 94/55 95 Mechanical Ventilator 21.00 06/25/21 01:00 105 13 95/60 96 Mechanical Ventilator 21.00 06/25/21 01:00 105 06/25/21 00:00 96 Mechanical Ventilator 21 06/25/21 00:00 105 9 101/63 95 Mechanical Ventilator 21.00 06/24/21 23:38 36.5 06/24/21 23:00 104 14 105/68 95 Mechanical Ventilator 21.00 06/24/21 22:22 102 14 95 21 06/24/21 22:00 101 12 105/68 95 Mechanical Ventilator 21.00 06/24/21 21:00 105 13 106/63 95 Mechanical Ventilator 21.00 06/24/21 20:00 105 8 107/63 95 Mechanical Ventilator 21.00 06/24/21 20:00 96 Mechanical Ventilator 21 06/24/21 19:31 36.7 06/24/21 19:02 99 20 97 21 06/24/21 19:00 101 06/24/21 19:00 101 19 100/62 97 Mechanical Ventilator 21.00 06/24/21 18:00 94 19 92/56 97 Mechanical Ventilator 21.00 06/24/21 17:00 98 20 90/52 96 Mechanical Ventilator 21.00 06/24/21 16:00 102 20 90/54 96 Mechanical Ventilator 21.00 06/24/21 15:12 96 Mechanical Ventilator 21 06/24/21 15:05 36.8 06/24/21 15:03 103 20 96 21 06/24/21 15:00 103 20 90/55 96 Mechanical Ventilator 21.00 06/24/21 14:46 106 107/64 06/24/21 14:00 107 19 95/55 96 Mechanical Ventilator 21.00 06/24/21 13:25 106 06/24/21 13:00 108 19 98/55 96 Mechanical Ventilator 21.00 06/24/21 12:14 94 Mechanical Ventilator 21 06/24/21 12:00 110 19 107/64 94 Mechanical Ventilator 21.00 06/24/21 11:30 37.0 06/24/21 11:00 101 21 92/53 93 Mechanical Ventilator 21.00 I & O 06/25/21 07:00 Intake Total 5567.5 ml Output Total 2950 ml Balance 2617.5 ml Height & Weight Height: '" Weight: lbs. oz. kg; 26.96 BMI Method: General Appearance: No Apparent Distress, WD/WN, Other (Intubated and sedated) Respiratory: Lungs Clear, Normal Breath Sounds, No Respiratory Distress, Other (Intubated and mechanically ventilated) Cardiovascular: No Murmur, Tachycardia Capillary Refill: Less Than 3 Seconds Extremity: Normal Inspection, Non Tender, No Pedal Edema Neurologic/Psychiatric: Other (Sedated) Skin: Normal Color, Warm/Dry Results Lab Laboratory Tests 06/24/21 00:34 06/24/21 04:38 06/24/21 09:15 06/24/21 13:17 06/24/21 16:33 06/25/21 04:20 Assessment/Plan Assessment/Plan (Tele-ICU Physician , Progress Note ) Available chart/ vitals / labs / Images reviewed Video assessment done using teleICU camera, rest of exam as per RN Discussed with RN , EXAM PER RN Events overnight : Afebrile I/O = pos 2300 Drips: insulin Pressors: , hemodynamically stable Sedation gtt: ( RASS ) - off propofol , off fentanyl - very strong and moves all VENT SETTINGS and ABG reviewed Not candidate for SBT today reviewed : Cardiovascular Stability / Sedation Score / FI02/PEEP / ABG / CXR Consultants: Hospital course: 06/24 - transferred from OSH with DKA , and withdrawal - on vent A/P Acute resp failure - intubated for acidosis and withdrowal - AC 14 450 +5 21 % - rate decreased with improvement od acidosis - will assess potention for vent liberation depending on mental status DKA -precipitated by infection, presumed *Insulin drip off - long acting started -decreased hydration. ADOLPH - dehydration - resolved Leukocytosis - reactive ? chest x-ray was normal , UA unremarkable - lipase peding , blood cx done - pending - empiric ABX given high WBC - follow Chronic Meth user, + for Methamphetamine - withdrawal: propofol to wean to versed , add fentanyl - will try ativan prn IV push - follow closely Encephalopathy - due to above + DKA - try to assess tomorrow - if doing ok - assess for extubation . moves all 4 ext Elevated TGL > 500 on addmission - versed - try get off propofol - lipase is elevated x2 - follow Anemia - delutional , also on her menstrual period - follow Lines : LEFT ScL 06/24 (Central Line Necessity Reviewed) Rico: 06/24 OG: + Nutrition: START TF today of not extubated Analgesia: Anxiety/ delirium VTE Prophylaxis: heparin sc Stress Ulcer Prophylaxis: na Glycemic Control: Plans in collaboration with bedside consultants and IM MDs. Discussed with RN to reach out if any questions or concerns A total of 35 minutes of critical care time was devoted to this patient today, required to treat and/or prevent further deterioration of critical care condition ( as above) . YAEL WOMACK MD Jun 25, 2021 10:21
[2021-06-25] MEDS ORDERED: LORazepam INJ 2 MG/ML (ATIVAN) VIAL ONE (10:26)
[2021-06-25] MEDS: LORazepam INJ 2 MG/ML (ATIVAN) VIAL IVP PRN ×3 (10:31→21:07)
[2021-06-25] MEDS: fentaNYL INJ 100 MCG/2 ML AMP IVP PRN ×4 (10:42→23:36)
[2021-06-25 11:15] VITALS: BP 98/66
--- NOTE | 2021-06-25 11:47 | Progress Note ---
CYNTHIA MEDINA MED STUDENT 06/25/21 1147: Subjective Date Seen by a Provider: Jun 25, 2021 Time Seen by a Provider: 07:30 Subjective/Events-last exam Sedated and intubated. Vitals stable per bedside monitor. RN reports turning sedation off at 0545 this am. Review of Systems General: Other (unobtainable ) HEENT: Other (unobtainable) Pulmonary: Other (unobtainable) Cardiovascular: Other (unobtainable) Gastrointestinal: Other (unobtainable) Genitourinary: Other (unobtainable) Musculoskeletal: other (unobtainable) Neurological: Other (unobtainable) Focused Exam Lactate Level 06/24/21 01:00: Lactic Acid Level 3.43*H 06/24/21 04:38: Lactic Acid Level 2.52*H 06/24/21 07:30: Lactic Acid Level 1.72 Objective Exam Last Set of Vital Signs Vital Signs Date Time Temp Pulse Resp B/P (MAP) Pulse Ox O2 Delivery O2 Flow Rate FiO2 06/25/21 11:15 101 17 96 21 06/25/21 11:11 Mechanical Ventilator 06/25/21 10:00 98/70 21.00 06/25/21 08:00 37.0 Capillary Refill : Less Than 3 Seconds I&O Intake and Output 06/25/21 00:00 Intake Total 6372.5 ml Output Total 4000 ml Balance 2372.5 ml Intake Oral 0 ml IV Total 6372.5 ml Output Urine Total 3300 ml Gastric Drainage Total 700 ml Daily Weight Change Unsure General: Other (Sedated and Intubated. Appears slightly older than stated age. ) HEENT: Atraumatic, Other (Endotracheal tube in place. OGT in place. ) Neck: Supple, No LAD Lungs: Clear to Auscultation, Normal Air Movement Heart: Regular Rate, No Murmurs Abdomen: Normal Bowel Sounds, Soft Extremities: No Clubbing, No Cyanosis, No Edema, Normal Pulses Skin: No Rashes, No Breakdown, No Significant Lesion Neuro: Other (sedated) Psych/Mental Status: Other (sedated) Results Lab Laboratory Tests 06/24/21 12:14: Glucometer 133H 06/24/21 13:17: Sodium Level 136, Potassium Level 4.2, Chloride Level 112H, Carbon Dioxide Level 17L, Anion Gap 7, Blood Urea Nitrogen 17, Creatinine 1.32H, Estimat Glomerular Filtration Rate 44, BUN/Creatinine Ratio 13, Glucose Level 127H, Calcium Level 7.6L 06/24/21 13:18: Glucometer 136H 06/24/21 14:16: Glucometer 137H 06/24/21 15:17: Glucometer 128H 06/24/21 16:18: Glucometer 103 06/24/21 16:33: Sodium Level 135, Potassium Level 4.1, Chloride Level 112H, Carbon Dioxide Level 19L, Anion Gap 4L, Blood Urea Nitrogen 15, Creatinine 1.14, Estimat Glomerular F iltration Rate 53, BUN/Creatinine Ratio 13, Glucose Level 104, Calcium Level 7.4L 06/24/21 17:23: Glucometer 104 06/24/21 18:22: Glucometer 104 06/24/21 20:04: Glucometer 102 06/24/21 23:40: Beta-Hydroxybutyrate (Chem panel) 0.31H 06/24/21 23:43: Glucometer 130H 06/25/21 04:20: White Blood Count 11.2H, Red Blood Count 3.58L, Hemoglobin 10.0L, Hematocrit 30L , Mean Corpuscular Volume 85, Mean Corpuscular Hemoglobin 28, Mean Corpuscular Hemoglobin Concent 33, Red Cell Distribution Width 14.7H, Platelet Count 259, Mean Platelet Volume 9.6, Immature Granulocyte % (Auto) 0, Neutrophils (%) (Auto) 75, Lymphocytes (%) (Auto) 16, Monocytes (%) (Auto) 7, Eosinophils (%) (Auto) 2, Basophils (%) (Auto) 0, Neutrophils # (Auto) 8.4H, Lymphocytes # (Auto) 1.8, Monocytes # (Auto) 0.8, Eosinophils # (Auto) 0.2, Basophils # (Auto) 0.0, Immature Granulocyte # (Auto) 0.0, Blood Gas Puncture Site RIGHT RADIAL, Blood Gas Patient Temperature 37, Arterial Blood pH 7.29*L, Arterial Blood Partial Pressure CO2 39, Arterial Blood Partial Pressure O2 91, Arterial Blood HCO3 18L, Arterial Blood Total CO2 19.2L, Arterial Blood Oxygen Saturation 98, Arterial Blood Base Excess -7.3L, Emmanuel Test YES-POS, Blood Gas Ventilator Setting YES, Blood Gas Inspired Oxygen 21%, Sodium Level 135, Potassium Level 3.7, Chloride Level 112H, Carbon Dioxide Level 17L, Anion Gap 6, Blood Urea Nitrogen 11, Creatinine 0.94, Estimat Glomerular Filtration Rate 66, BUN/Creatinine Ratio 12, Glucose Level 103, Calcium Level 7.5L, Corrected Calcium 8.6, Phosphorus Level 1.5L, Magnesium Level 1.9, Total Bilirubin 0.4, Aspartate Amino Transf (AST/SGOT) 659H, Alanine Aminotransferase (ALT/SGPT) 215H , Alkaline Phosphatase 136, Total Protein 4.6L, Albumin 2.6L, Triglycerides Level 290H, Lipase 158H 06/25/21 04:24: Glucometer 117H 06/25/21 07:21: Glucometer 123H Microbiology 06/24/21 Urine Culture - Final, Complete NO GROWTH 06/24/21 MRSA Screen - Final, Complete MRSA not isolated Assessment/Plan Assessment/Plan Assess & Plan/Chief Complaint Acute respiratory failure -TV 450. FIO2 21%. PEEP 5. RR14 -intubated due to agitation and acidosis -attempt SBT today when more alert with possible extubation 06-25 -sedation off at 0545 this am -intermittently agitated/restless pulling at lines/tubes -prn ativan pushes ordered DKA -resolved -anion gap 6 and co2 up to 17 -levemir -SSI accuchecks q6hrs -IVF's Leukocytosis -improved -etiology unclear, maybe reactive -blood cx's pending -cxray unremarkable -vanco and zosyn -stanley culture Transaminitis -AST 659. ALT 215 -continue to trend Lactic acidosis -resolved ADOLPH -resolved -creatinine 0.94 -continue IVF's Hypertriglyceredima -tri's 290 from 535 yesterday -continue to monitor DVT ppx -heparin subQ H/O meth use LAINE SANCHEZ DO 06/26/21 0544: Supervisory-Addendum Brief Verification & Attestation Participated in pt care: history, MDM, physical Personally performed: exam, history, MDM, supervision of care Care discussed with: Medical Student Procedures: n/a Results interpretation: Verified all documentation Verification and Attestation of Medical Student E/M Service A medical student performed and documented this service in my presence. I reviewed and verified all information documented by the medical student and made modifications to such information, when appropriate. I personally performed the physical exam and medical decision making. Laine Sanchez, Jun 26, 2021,05:44 CYNTHIA MEDINA MED STUDENT Jun 25, 2021 11:47 LAINE SANCHEZ DO Jun 26, 2021 05:44
[2021-06-25 14:41] VITALS: BP 115/75
[2021-06-25] MEDS ORDERED: DEXTROSE 50% 50 ML (IMS) SYR IV ONE (17:45)
[2021-06-25] MEDS ORDERED: DEXTROSE 50% 50 ML (IMS) SYR ONE (17:53)
[2021-06-25 19:01] VITALS: BP 115/75
[2021-06-25 22:40] VITALS: BP 102/66
[2021-06-26] MEDS: D5 1/2 NS 1000 ML IV SOLUTION 1,000 ML IV SCH ×2 (01:13→14:50)
[2021-06-26] MEDS: VANCOMYCIN 750 MG/NS 250 ML IVPB IV SCH ×2 (01:13)
[2021-06-26] MEDS: 1/2 NS IV SOLUTION 1,000 ML IV SCH ×5 (02:01→16:16)
[2021-06-26 03:05] VITALS: BP 105/70
[2021-06-26] MEDS: PROPOFOL DRIP (ICU) 100 ML IV SCH ×2 (03:54→11:52)
[2021-06-26] MEDS: fentaNYL INJ 100 MCG/2 ML AMP IVP PRN ×7 (04:10→22:11)
[2021-06-26 04:16] LABS: ABG BASE EXCESS -3.5 MMOL/L (-2.5-2.5); ABG OXYGEN SATURATION 99 % (94-100); ABG PCO2 36 MMHG (35-45); ABG PH 7.38 (7.37-7.43); ABG PO2 99 MMHG (79-93); ABG TCO2 21.9 MMOL/L (21.0-31.0); ALLENS TEST YES-POS
[2021-06-26 04:17] LABS: INSPIRED O2 21%; PATIENT TEMP 37.1; VENTILATOR YES
[2021-06-26 04:18] LABS: BASOPHILS % (AUTO) 0 % (0-10); EOSINOPHILS # (AUTO) 0.1 10^3/uL (0.0-0.3); EOSINOPHILS % (AUTO) 2 % (0-10); HEMATOCRIT 29 % (35-52); HEMOGLOBIN 9.5 g/dL (11.5-16.0); LYMPHOCYTES # (AUTO) 1.8 10^3/uL (1.0-4.0); LYMPHOCYTES % (AUTO) 24 % (12-44); MEAN CORPUSCULAR HEMOGLOBIN 28 pg (25-34); MEAN CORPUSCULAR HGB CONC 33 g/dL (32-36); MEAN CORPUSCULAR VOLUME 85 fL (80-99); MEAN PLATELET VOLUME 9.4 fL (9.0-12.2); MONOCYTES # (AUTO) 0.6 10^3/uL (0.0-1.0); MONOCYTES % (AUTO) 8 % (0-12); NEUTROPHILS # (AUTO) 4.9 10^3/uL (1.8-7.8); NEUTROPHILS % (AUTO) 66 % (42-75); PLATELET COUNT 204 10^3/uL (130-400); WHITE BLOOD COUNT 7.4 10^3/uL (4.3-11.0)
[2021-06-26 04:29] LABS: ALBUMIN 2.4 GM/DL (3.2-4.5); POTASSIUM 3.2 MMOL/L (3.6-5.0)
[2021-06-26 04:31] LABS: CALCIUM 7.2 MG/DL (8.5-10.1)
[2021-06-26 04:32] LABS: TOTAL PROTEIN 4.4 GM/DL (6.4-8.2)
[2021-06-26 04:34] LABS: BILIRUBIN,TOTAL 0.4 MG/DL (0.1-1.0)
[2021-06-26 04:35] LABS: PHOSPHORUS 1.7 MG/DL (2.3-4.7)
[2021-06-26 04:36] LABS: CREATININE SERUM 0.63 MG/DL (0.60-1.30)
[2021-06-26 04:37] LABS: BILIRUBIN,DIRECT 0.2 MG/DL (0.0-0.3); BILIRUBIN,INDIRECT 0.2 MG/DL
[2021-06-26 04:38] LABS: MAGNESIUM 1.8 MG/DL (1.6-2.4)
[2021-06-26] MEDS: POTASSIUM CL 10MEQ/50ML IVPB 50 ML IV SCH ×3 (04:40→06:01)
[2021-06-26] MEDS: MAGNESIUM 1 GM/100 ML IVPB 100 ML IV SCH (04:41)
[2021-06-26] MEDS: inSUlin ASPART (NovoLOG) 1 UNIT/0.01 ML (CHARGE PER UNIT) SC SCH ×4 (04:41→20:01)
[2021-06-26] MEDS: KCL 20 MEQ TAB (K-DUR) PO SCH (04:41)
[2021-06-26 04:47] LABS: INR 0.9 (0.8-1.4); PROTHROMBIN TIME PATIENT 12.6 SEC (12.2-14.7)
[2021-06-26] MEDS: LORazepam INJ 2 MG/ML (ATIVAN) VIAL IVP PRN ×4 (06:01→20:11)
[2021-06-26 07:34] VITALS: BP 88/56
[2021-06-26] MEDS: PIPERACILLIN/TAZOBACTAM (BULK) 4.5 GM in NS (IVPB) 100 ML IV SCH ×3 (07:46→23:59)
--- NOTE | 2021-06-26 07:58 | Progress Note ---
CYNTHIA MEDINA MED STUDENT 06/26/21 0758: Subjective Date Seen by a Provider: Jun 26, 2021 Time Seen by a Provider: 07:10 Subjective/Events-last exam Patient remains intubated. Vitals stable per bedside monitor. Depending on mental status may attempt SBT today with possible extubation to follow. Review of Systems General: Other (unobtainable) HEENT: Other (unobtainable) Cardiovascular: Other (unobtainable) Gastrointestinal: Other (unobtainable) Genitourinary: Other (unobtainable) Musculoskeletal: other (unobtainable) Neurological: Other (unobtainable) Focused Exam Lactate Level 06/24/21 01:00: Lactic Acid Level 3.43*H 06/24/21 04:38: Lactic Acid Level 2.52*H 06/24/21 07:30: Lactic Acid Level 1.72 Objective Exam Last Set of Vital Signs Vital Signs Date Time Temp Pulse Resp B/P (MAP) Pulse Ox O2 Delivery O2 Flow Rate FiO2 06/26/21 07:48 36.4 06/26/21 07:34 75 14 93 21 06/26/21 06:00 99/69 Mechanical Ventilator 21.00 Capillary Refill : Less Than 3 Seconds I&O Intake and Output 06/26/21 00:00 Intake Total 2775.5 ml Output Total 1625 ml Balance 1150.5 ml Intake Oral 0 ml IV Total 2717.5 ml Tube Feeding 58 ml Output Urine Total 1475 ml Gastric Drainage Total 150 ml General: Other (Intubated. ) HEENT: Atraumatic, Other (Pupils 2mm bilaterally and react briskly. Endotracheal tube in place. NGT in place. ) Neck: Supple, No LAD, Other (Left subclavian CVC present. Dressing C/D/I) Lungs: Clear to Auscultation, Normal Air Movement Heart: Regular Rate, No Murmurs Abdomen: Normal Bowel Sounds, Soft, No Tenderness Extremities: No Clubbing, No Cyanosis, No Edema, Normal Pulses Skin: No Significant Lesion Neuro: Other (sedated) Psych/Mental Status: Other (sedated) Results Lab Laboratory Tests 06/25/21 11:58: Glucometer 107 06/25/21 15:47: Glucometer 81 06/25/21 17:32: Glucometer 65L 06/25/21 20:07: Glucometer 139H 06/25/21 22:00: Beta-Hydroxybutyrate (Chem panel) 0.09 06/25/21 23:18: Glucometer 123H 06/26/21 04:05: White Blood Count 7.4, Red Blood Count 3.42L, Hemoglobin 9.5L, Hematocrit 29L, Mean Corpuscular Volume 85, Mean Corpuscular Hemoglobin 28, Mean Corpuscular Hemoglobin Concent 33, Red Cell Distribution Width 14.9H, Platelet Count 204, Mean Platelet Volume 9.4, Immature Granulocyte % (Auto) 0, Neutrophils (%) (Auto) 66, Lymphocytes (%) (Auto) 24, Monocytes (%) (Auto) 8, Eosinophils (%) (Auto) 2, Basophils (%) (Auto) 0, Neutrophils # (Auto) 4.9, Lymphocytes # (Auto) 1.8, Monocytes # (Auto) 0.6, Eosinophils # (Auto) 0.1, Basophils # (Auto) 0.0, Immature Granulocyte # (Auto) 0.0, Prothrombin Time 12.6, INR Comment 0.9, Blood Gas Puncture Site RR, Blood Gas Patient Temperature 37.1, Arterial Blood pH 7.38, Arterial Blood Partial Pressure CO2 36, Arterial Blood Partial Pressure O2 99H, Arterial Blood HCO3 21L, Arterial Blood Total CO2 21.9, Arterial Blood Oxygen Saturation 99, Arterial Blood Base Excess -3.5L, Emmanuel Test YES-POS, Blood Gas Ventilator Setting YES, Blood Gas Inspired Oxygen 21%, Sodium Level 139, Potassium Level 3.2L, Chloride Level 110H, Carbon Dioxide Level 20L, Anion Gap 9, Blood Urea Nitrogen 4L, Creatinine 0.63, Estimat Glomerular Filtration Rate 104, BUN/Creatinine Ratio 6, Glucose Level 102, Calcium Level 7.2L, Corrected Calcium 8.5, Phosphorus Level 1.7L, Magnesium Level 1.8, Total Bilirubin 0.4, Direct Bilirubin 0.2, Indirect Bilirubin 0.2, Aspartate Amino Transf (AST/SGOT) 216H, Alanine Aminotransferase (ALT/SGPT) 167H, Alkaline Phosphatase 124, Total Protein 4.4L, Albumin 2.4L, Triglycerides Level 196H, Lipase 32, Procalcitonin 3.16H Microbiology 06/24/21 Blood Culture - Preliminary, Resulted No growth 06/24/21 Urine Culture - Final, Complete NO GROWTH 06/24/21 MRSA Screen - Final, Complete MRSA not isolated Assessment/Plan Assessment/Plan Assess & Plan/Chief Complaint Acute respiratory failure -TV 450. FIO2 21%. PEEP 5. RR14 -intubated due to agitation and acidosis -attempt SBT today when more alert with possible extubation 9-15 -sedation off at 0545 9-14 -intermittently agitated/restless pulling at lines/tubes -prn ativan/fentanyl pushes ordered DKA -resolved -levemir -SSI accuchecks q6hrs -IVF's Anemia -hgb 9.5 today -probably dilutional Hypokalemia/hypophosphatemia -K 3.2 today, supplement -phos 1.7, supplement Leukocytosis -procalcitonin 3.16 -improved -etiology unclear, maybe reactive -prelim blood cultures negative -final urine culture negative -cxray unremarkable -vanco and zosyn Transaminitis -etiology unclear -AST 216. ALT 167. 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 9-14 -continue to monitor DVT ppx -heparin subQ H/O meth use LAINE SANCHEZ DO 06/27/21 0524: Subjective Subjective/Events-last exam Patient still intubated Supportive care continues Only on IV push sedation Assessment/Plan Assessment/Plan Assess & Plan/Chief Complaint Hopefully wean ventilator soon Glucose management Supervisory-Addendum Brief Verification & Attestation Participated in pt care: history, MDM, physical Personally performed: exam, history, MDM, supervision of care Care discussed with: Medical Student Procedures: n/a Results interpretation: Verified all documentation Verification and Attestation of Medical Student E/M Service A medical student performed and documented this service in my presence. I reviewed and verified all information documented by the medical student and made modifications to such information, when appropriate. I personally performed the physical exam and medical decision making. Laine Sanchez, Jun 27, 2021,05:23 CYNTHIA MEDINA MED STUDENT Jun 26, 2021 07:58 LAINE SANCHEZ DO Jun 27, 2021 05:24
[2021-06-26] MEDS: fentaNYL DRIP PRE-MIX 250 ML IV SCH (10:05)
--- NOTE | 2021-06-26 10:10 | Tele-ICU Progress Note ---
Subjective Date Seen by a Provider: Jun 26, 2021 Time Seen by a Provider: 10:09 Sepsis Event Evaluation Height, Weight, BMI Height: '" Weight: lbs. oz. kg; 26.96 BMI Method: Focused Exam Lactate Level 06/24/21 01:00: Lactic Acid Level 3.43*H 06/24/21 04:38: Lactic Acid Level 2.52*H 06/24/21 07:30: Lactic Acid Level 1.72 Exam Exam Patient acknowledged, consented, and participated in this virtual visit which was conducted using real time audio/video Vital Signs Date Time Temp Pulse Resp B/P (MAP) Pulse Ox O2 Delivery O2 Flow Rate FiO2 06/26/21 10:00 80 14 98/63 97 Mechanical Ventilator 21.00 06/26/21 09:00 96 15 92/60 97 Mechanical Ventilator 21.00 06/26/21 08:07 99 Mechanical Ventilator 21 06/26/21 08:00 74 16 104/76 98 Mechanical Ventilator 21.00 06/26/21 07:48 36.4 06/26/21 07:34 75 14 93 21 06/26/21 07:00 75 13 92/59 97 Mechanical Ventilator 21.00 06/26/21 06:35 81 06/26/21 06:00 75 13 99/69 100 Mechanical Ventilator 21.00 06/26/21 05:00 82 14 102/69 98 Mechanical Ventilator 21.00 06/26/21 04:15 96 Mechanical Ventilator 21 06/26/21 04:00 87 15 110/71 98 Mechanical Ventilator 21.00 06/26/21 04:00 37.1 06/26/21 03:05 84 14 98 21 06/26/21 03:00 84 14 105/70 98 Mechanical Ventilator 21.00 06/26/21 02:00 84 14 103/66 98 Mechanical Ventilator 21.00 06/26/21 01:00 89 06/26/21 01:00 89 13 102/70 98 Mechanical Ventilator 21.00 06/26/21 00:00 93 13 98/68 96 Mechanical Ventilator 21.00 06/25/21 23:39 97 Mechanical Ventilator 21 06/25/21 23:11 37.4 06/25/21 23:00 93 15 111/69 98 Mechanical Ventilator 21.00 06/25/21 22:40 97 15 97 21 06/25/21 22:00 89 14 102/65 98 Mechanical Ventilator 21.00 06/25/21 21:00 92 14 108/68 92 Mechanical Ventilator 21.00 06/25/21 20:00 96 Mechanical Ventilator 21 06/25/21 20:00 89 15 101/70 98 Mechanical Ventilator 21.00 06/25/21 19:33 37.7 90 14 100/65 98 Mechanical Ventilator 21.00 06/25/21 19:01 97 15 98 21 06/25/21 19:00 90 15 101/65 97 Mechanical Ventilator 21.00 06/25/21 19:00 90 06/25/21 18:00 95 15 103/62 97 Mechanical Ventilator 21.00 06/25/21 17:00 94 14 101/65 97 Mechanical Ventilator 21.00 06/25/21 16:00 98 13 103/64 95 Mechanical Ventilator 21.00 06/25/21 15:53 96 Mechanical Ventilator 21 06/25/21 15:50 37.2 06/25/21 15:00 99 9 102/65 89 Mechanical Ventilator 21.00 06/25/21 14:41 97 15 98 21 06/25/21 14:00 94 14 107/73 98 Mechanical Ventilator 21.00 06/25/21 13:00 95 06/25/21 13:00 99 13 103/72 98 Mechanical Ventilator 21.00 06/25/21 12:39 37.2 06/25/21 12:00 37.0 06/25/21 12:00 95 14 101/64 98 Mechanical Ventilator 21.00 06/25/21 11:15 101 17 96 21 06/25/21 11:11 96 Mechanical Ventilator 21 06/25/21 11:00 101 13 97/62 96 Mechanical Ventilator 21.00 I & O 06/26/21 07:00 Intake Total 1668 ml Output Total 1750 ml Balance -82 ml Height & Weight Height: '" Weight: lbs. oz. kg; 26.96 BMI Method: General Appearance: No Apparent Distress, WD/WN, Other (Intubated and sedated) Respiratory: Lungs Clear, Normal Breath Sounds, No Respiratory Distress, Other (Intubated and mechanically ventilated) Cardiovascular: No Murmur, Tachycardia Capillary Refill: Less Than 3 Seconds Extremity: Normal Inspection, Non Tender, No Pedal Edema Neurologic/Psychiatric: Other (Sedated) Skin: Normal Color, Warm/Dry Results Lab Laboratory Tests 06/24/21 13:17 06/24/21 16:33 06/25/21 04:20 06/26/21 04:05 Assessment/Plan Assessment/Plan (Tele-ICU Physician , Progress Note ) Available chart/ vitals / labs / Images reviewed Video assessment done using teleICU camera, rest of exam as per RN Discussed with RN , EXAM PER RN Events overnight : FEBRILE I/O = pos 1000 Drips: d51/2 100 Pressors: , hemodynamically stable Sedation gtt: ( RASS ) - off propofol , off fentanyl - very strong and moves all , prn ativan x2 - DOES NOT FOLLOW COMMANDS VENT SETTINGS and ABG reviewed POSSIBLE candidate for SBT today reviewed : Cardiovascular Stability / Sedation Score / FI02/PEEP / ABG / CXR Consultants: Hospital course: 06/24 - transferred from OSH with DKA , and withdrawal - on vent 06/25 - off insulin gtt 06/26 - off sedation , DOES NOT FOLLOW COMMANDS A/P Acute resp failure - intubated for acidosis and withdrowal - AC 14 450 +5 21 % - will assess potention for vent liberation depending on mental status DM , DKA - resolved -Insulin drip - long acting started ADOLPH - dehydration - resolved Leukocytosis - reactive ? chest x-ray was normal , UA unremarkable , but had fever 06/25 - will finish 2 more dys of ABX - blood cx so far neg Chronic Meth user, + for Methamphetamine - withdrawal:- will try ativan and fentanyl prn IV push - follow closely - hold sedation gtts Encephalopathy - due to above + DKA - try to assess tomorrow - if doing ok - assess for extubation . moves all 4 ext Elevated TGL > 500 on addmission - IMPROVING - versed , off propofol - lipase is elevated x2 - follow Anemia - delutional , also on her menstrual period - follow Elevated transaminases - ? shock liver - improving , as per RN exam abd exanm is benign - follow Lines : LEFT ScL 06/24 (Central Line Necessity Reviewed) Rico: 06/24 OG: + Nutrition TF TOLERATED Analgesia: Anxiety/ delirium VTE Prophylaxis: heparin sc Stress Ulcer Prophylaxis: na Glycemic Control: Plans in collaboration with bedside consultants and IM MDs. Discussed with RN to reach out if any questions or concerns A total of 35 minutes of critical care time was devoted to this patient today, required to treat and/or prevent further deterioration of critical care condition ( as above) . YAEL WOMACK MD Jun 26, 2021 10:10
[2021-06-26 10:36] VITALS: BP 93/61
[2021-06-26 14:31] VITALS: BP 84/61
[2021-06-26 18:41] VITALS: BP 97/60
[2021-06-26 22:26] VITALS: BP 88/56
[2021-06-27] MEDS ORDERED: TROUGH ORDER-PHARMACY XX NR (01:00)
[2021-06-27] MEDS: fentaNYL INJ 100 MCG/2 ML AMP IVP PRN ×8 (01:31→20:38)
[2021-06-27 02:20] VITALS: BP 86/57
[2021-06-27 04:21] LABS: ABG BASE EXCESS -1.6 MMOL/L (-2.5-2.5); ABG OXYGEN SATURATION 99 % (94-100); ABG PCO2 38 MMHG (35-45); ABG PH 7.39 (7.37-7.43); ABG PO2 87 MMHG (79-93); ABG TCO2 23.8 MMOL/L (21.0-31.0)
[2021-06-27 04:22] LABS: ALLENS TEST POSITIVE; INSPIRED O2 21; PATIENT TEMP 36.8; VENTILATOR YES
[2021-06-27] MEDS: PROPOFOL DRIP (ICU) 100 ML IV SCH ×2 (04:26→17:47)
[2021-06-27 04:29] LABS: BASOPHILS % (AUTO) 1 % (0-10); EOSINOPHILS # (AUTO) 0.1 10^3/uL (0.0-0.3); EOSINOPHILS % (AUTO) 3 % (0-10); HEMATOCRIT 28 % (35-52); HEMOGLOBIN 9.2 g/dL (11.5-16.0); LYMPHOCYTES # (AUTO) 1.1 10^3/uL (1.0-4.0); LYMPHOCYTES % (AUTO) 32 % (12-44); MEAN CORPUSCULAR HEMOGLOBIN 28 pg (25-34); MEAN CORPUSCULAR HGB CONC 33 g/dL (32-36); MEAN CORPUSCULAR VOLUME 86 fL (80-99); MEAN PLATELET VOLUME 9.7 fL (9.0-12.2); MONOCYTES # (AUTO) 0.3 10^3/uL (0.0-1.0); MONOCYTES % (AUTO) 8 % (0-12); NEUTROPHILS # (AUTO) 1.9 10^3/uL (1.8-7.8); NEUTROPHILS % (AUTO) 57 % (42-75); PLATELET COUNT 192 10^3/uL (130-400); WHITE BLOOD COUNT 3.4 10^3/uL (4.3-11.0)
[2021-06-27 04:51] LABS: ALBUMIN 2.2 GM/DL (3.2-4.5); BILIRUBIN,TOTAL 0.2 MG/DL (0.1-1.0); CALCIUM 7.2 MG/DL (8.5-10.1); CREATININE SERUM 0.65 MG/DL (0.60-1.30); MAGNESIUM 1.7 MG/DL (1.6-2.4); PHOSPHORUS 2.1 MG/DL (2.3-4.7); POTASSIUM 3.8 MMOL/L (3.6-5.0); TOTAL PROTEIN 4.4 GM/DL (6.4-8.2)
[2021-06-27] MEDS: KCL 20 MEQ TAB (K-DUR) PO SCH (05:22)
[2021-06-27] MEDS: POTASSIUM CL 10MEQ/50ML IVPB 50 ML IV SCH (05:22)
[2021-06-27] MEDS: MAGNESIUM 1 GM/100 ML IVPB 100 ML IV SCH ×3 (05:22→09:28)
[2021-06-27] MEDS: inSUlin ASPART (NovoLOG) 1 UNIT/0.01 ML (CHARGE PER UNIT) SC SCH ×3 (05:34→17:53)
[2021-06-27 06:40] VITALS: BP 91/63
[2021-06-27] MEDS: LORazepam INJ 2 MG/ML (ATIVAN) VIAL IVP PRN ×3 (07:00→20:36)
--- NOTE | 2021-06-27 07:57 | Progress Note ---
CYNTHIA MEDINA MED STUDENT 06/27/21 0757: Subjective Date Seen by a Provider: Jun 27, 2021 Time Seen by a Provider: 07:05 Subjective/Events-last exam Remains intubated. Not arousable upon assessment this am. Plan to let her become more awake today and attempt SBT if able. Review of Systems General: Other (unobtainable) HEENT: Other (unobtainable) Pulmonary: Other (unobtainable) Cardiovascular: Other (unobtainable) Gastrointestinal: Other (unobtainable) Genitourinary: Other (unobtainable) Musculoskeletal: other (unobtainable) Neurological: Other (unobtainable) Objective Exam Last Set of Vital Signs Vital Signs Date Time Temp Pulse Resp B/P (MAP) Pulse Ox O2 Delivery O2 Flow Rate FiO2 06/27/21 06:40 80 14 94 21 06/27/21 06:00 96/66 Mechanical Ventilator 21.00 06/26/21 23:58 36.8 Capillary Refill : Less Than 3 Seconds I&O Intake and Output 06/27/21 00:00 Intake Total 1475 ml Output Total 1675 ml Balance -200 ml IV Total 200 ml Tube Feeding 650 ml Other 625 ml Output Urine Total 1675 ml General: Other (Intubated. ) HEENT: Atraumatic, Other (Pupils 3mm bilaterally equal and brisk. Endotracheal tube in place. OGT in place.) Neck: Supple, No LAD Lungs: Clear to Auscultation, Normal Air Movement Heart: Regular Rate, No Murmurs Abdomen: Normal Bowel Sounds, Soft, No Tenderness Extremities: No Clubbing, No Cyanosis, No Edema, Normal Pulses Skin: No Significant Lesion Neuro: Other (sedated) Psych/Mental Status: Other (sedated) Results Lab Laboratory Tests 06/26/21 08:13: Glucometer 103 06/26/21 11:49: Glucometer 180H 06/26/21 15:55: Glucometer 153H 06/26/21 20:00: Glucometer 166H 06/27/21 00:07: Glucometer 167H 06/27/21 04:15: Blood Gas Puncture Site RIGHT RADIAL, Blood Gas Patient Temperature 36.8, Arterial Blood pH 7.39, Arterial Blood Partial Pressure CO2 38, Arterial Blood Partial Pressure O2 87, Arterial Blood HCO3 23, Arterial Blood Total CO2 23.8, Arterial Blood Oxygen Saturation 99, Arterial Blood Base Excess -1.6, Emmanuel Test POSITIVE, Blood Gas Ventilator Setting YES, Blood Gas Inspired Oxygen 21 06/27/21 04:20: White Blood Count 3.4L, Red Blood Count 3.24L, Hemoglobin 9.2L, Hematocrit 28L, Mean Corpuscular Volume 86, Mean Corpuscular Hemoglobin 28, Mean Corpuscular Hemoglobin Concent 33, Red Cell Distribution Width 14.9H, Platelet Count 192, Mean Platelet Volume 9.7, Immature Granulocyte % (Auto) 0, Neutrophils (%) (Auto) 57, Lymphocytes (%) (Auto) 32, Monocytes (%) (Auto) 8, Eosinophils (%) (Auto) 3, Basophils (%) (Auto) 1, Neutrophils # (Auto) 1.9, Lymphocytes # (Auto) 1.1, Monocytes # (Auto) 0.3, Eosinophils # (Auto) 0.1, Basophils # (Auto) 0.0, Immature Granulocyte # (Auto) 0.0, Sodium Level 138, Potassium Level 3.8, Chloride Level 109H, Carbon Dioxide Level 22, Anion Gap 7, Blood Urea Nitrogen 6L, Creatinine 0.65, Estimat Glomerular Filtration Rate 100, BUN/Creatinine Ratio 9, Glucose Level 213H, Calcium Level 7.2L, Corrected Calcium 8.6, Phosphorus Level 2.1L, Magnesium Level 1.7, Total Bilirubin 0.2, Aspartate Amino Transf (AST/SGOT) 65H, Alanine Aminotransferase (ALT/SGPT) 113H, Alkaline Phosphatase 132, Ammonia 24, Total Protein 4.4L, Albumin 2.2L Microbiology 06/24/21 Blood Culture - Preliminary, Resulted No growth 06/24/21 Urine Culture - Final, Complete NO GROWTH 06/24/21 MRSA Screen - Final, Complete MRSA not isolated Assessment/Plan Assessment/Plan Assess & Plan/Chief Complaint Acute respiratory failure -TV 450. FIO2 21%. PEEP 5. RR14 -intubated due to agitation and acidosis -attempt SBT today when more alert with possible extubation 9-16 -sedation off at 0545 9-14 -intermittently agitated/restless pulling at lines/tubes DKA -resolved -levemir -SSI accuchecks q6hrs -IVF's Anemia -hgb 9.2 today, stable -probably dilutional Hypophosphatemia -phos 2.1, supplement Leukocytosis -improved -prelim blood cultures negative -final urine culture negative -cxray unremarkable -zosyn. Vanco dc'd Transaminitis -etiology unclear -AST 65. ALT 113. 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 Add precedex today, dc ativan and fentanyl pushes DC IVF's LAINE SANCHEZ DO 06/28/21 1143: Subjective Subjective/Events-last exam Patient still intubated Extubation hopefully tomorrow Objective Exam General: Other (Intubated. ) Lungs: Clear to Auscultation Heart: Regular Rate Assessment/Plan Assessment/Plan Assess & Plan/Chief Complaint Extubation soon Supervisory-Addendum Brief Verification & Attestation Participated in pt care: history, MDM, physical Personally performed: exam, history, MDM, supervision of care Care discussed with: Medical Student Procedures: n/a Results interpretation: Verified all documentation Verification and Attestation of Medical Student E/M Service A medical student performed and documented this service in my presence. I reviewed and verified all information documented by the medical student and made modifications to such information, when appropriate. I personally performed the physical exam and medical decision making. Laine Sanchez, Jun 28, 2021,11:43 CYNTHIA MEDINA MED STUDENT Jun 27, 2021 07:57 LAINE SANCHEZ DO Jun 28, 2021 11:43
[2021-06-27] MEDS: PIPERACILLIN/TAZOBACTAM (BULK) 4.5 GM in NS (IVPB) 100 ML IV SCH ×2 (08:13→16:07)
--- NOTE | 2021-06-27 08:57 | Tele-ICU Progress Note ---
Subjective Date Seen by a Provider: Jun 27, 2021 Time Seen by a Provider: 08:57 Sepsis Event Evaluation Height, Weight, BMI Height: '" Weight: lbs. oz. kg; 26.96 BMI Method: Exam Exam Patient acknowledged, consented, and participated in this virtual visit which was conducted using real time audio/video Vital Signs Date Time Temp Pulse Resp B/P (MAP) Pulse Ox O2 Delivery O2 Flow Rate FiO2 06/27/21 08:19 99 Mechanical Ventilator 21 06/27/21 08:00 36.8 06/27/21 06:40 80 14 94 21 06/27/21 06:30 75 06/27/21 06:00 86 14 96/66 98 Mechanical Ventilator 21.00 06/27/21 05:00 69 14 90/55 97 Mechanical Ventilator 21.00 06/27/21 04:00 76 14 90/56 98 Mechanical Ventilator 21.00 06/27/21 04:00 98 Mechanical Ventilator 21 06/27/21 03:00 77 14 92/58 97 Mechanical Ventilator 21.00 06/27/21 02:20 77 14 97 21 06/27/21 02:00 72 14 86/57 96 Mechanical Ventilator 21.00 06/27/21 01:00 75 06/27/21 01:00 75 14 94/62 98 Mechanical Ventilator 21.00 06/27/21 00:11 98 Mechanical Ventilator 21 06/27/21 00:00 76 13 90/59 98 Mechanical Ventilator 21.00 06/26/21 23:58 36.8 06/26/21 23:00 76 14 88/55 100 Mechanical Ventilator 21.00 06/26/21 22:26 68 14 99 21 06/26/21 22:00 75 14 88/56 99 Mechanical Ventilator 21.00 06/26/21 21:00 73 14 92/62 99 Mechanical Ventilator 21.00 06/26/21 20:00 58 15 92/55 99 Mechanical Ventilator 21.00 06/26/21 20:00 36.8 06/26/21 19:31 99 Mechanical Ventilator 21 06/26/21 19:26 37.0 74 14 86/56 99 Mechanical Ventilator 21.00 06/26/21 19:00 78 14 86/56 97 Mechanical Ventilator 21.00 06/26/21 19:00 78 06/26/21 18:41 79 14 95 21 06/26/21 18:00 80 14 97/61 98 Mechanical Ventilator 21.00 06/26/21 17:00 82 14 91/59 98 Mechanical Ventilator 21.00 06/26/21 16:14 99 Mechanical Ventilator 21 06/26/21 16:00 78 14 92/57 98 Mechanical Ventilator 21.00 06/26/21 16:00 35.0 06/26/21 15:00 79 18 88/55 96 Mechanical Ventilator 21.00 06/26/21 14:31 77 14 98 21 06/26/21 14:00 37.0 06/26/21 14:00 75 13 91/63 97 Mechanical Ventilator 21.00 06/26/21 13:00 79 14 95/63 95 Mechanical Ventilator 21.00 06/26/21 12:37 77 06/26/21 12:00 77 29 89/63 97 Mechanical Ventilator 21.00 06/26/21 11:53 100 Mechanical Ventilator 21 06/26/21 11:00 81 14 96/65 98 Mechanical Ventilator 21.00 06/26/21 10:36 84 15 97 21 06/26/21 10:00 80 14 98/63 97 Mechanical Ventilator 21.00 06/26/21 09:00 96 15 92/60 97 Mechanical Ventilator 21.00 I & O 06/27/21 07:00 Intake Total 1675 ml Output Total 1575 ml Balance 100 ml Height & Weight Height: '" Weight: lbs. oz. kg; 26.96 BMI Method: General Appearance: No Apparent Distress, WD/WN, Other (Intubated and sedated) Respiratory: Lungs Clear, Normal Breath Sounds, No Respiratory Distress, Other (Intubated and mechanically ventilated) Cardiovascular: No Murmur, Tachycardia Capillary Refill: Less Than 3 Seconds Extremity: Normal Inspection, Non Tender, No Pedal Edema Neurologic/Psychiatric: Other (Sedated) Skin: Normal Color, Warm/Dry Results Lab Laboratory Tests 06/26/21 04:05 06/27/21 04:20 Assessment/Plan Assessment/Plan (Tele-ICU Physician , Progress Note ) Available chart/ vitals / labs / Images reviewed Video assessment done using teleICU camera, rest of exam as per RN Discussed with RN , EXAM PER RN Events overnight : AFEBRILE I/O = neg 200 Drips: d51/2 100 Pressors: , hemodynamically stable Sedation gtt: ( RASS ) - off propofol , off fentanyl - very strong and moves all , prn ativan x2 - DOES NOT FOLLOW COMMANDS VENT SETTINGS and ABG reviewed POSSIBLE candidate for SBT today reviewed : Cardiovascular Stability / Sedation Score / FI02/PEEP / ABG / CXR Consultants: Hospital course: 06/24 - transferred from OSH with DKA , and withdrawal - on vent 06/25 - off insulin gtt 06/26 - off sedation , DOES NOT FOLLOW COMMANDS , OFF drips , ativan prn x2 last 24 h , fentanyl prn q4 A/P Acute resp failure - intubated for acidosis and withdrowal - AC 14 450 +5 30 % - will assess potention for vent liberation depending on mental status Encephalopathy - due to above + DKA? ( metabolic enceph should be reloving by now , ammonia WNL ) - DOES NOT FOLLOW COMMANDS , OFF drips , ativan prn x2 last 24 h , fentanyl prn q4 ( moves all 4 ext , no meningial signs as per RB and medical student exam ) -- WILL DO CT HEAD TODAY , try precedex DM , DKA - resolved -Insulin drip - long acting started ADOLPH - dehydration - resolved Leukocytosis - normalised - reactive ? chest x-ray was normal , UA unremarkable , but had fever 06/25 - will finish 2 more dys of ABX - blood cx so far neg Chronic Meth user, + for Methamphetamine - withdrawal:- will try ativan and fentanyl prn IV push - follow closely with mnimal use - hold sedation gtts , prn precedex Elevated TGL > 500 on addmission - IMPROVING - off propofol - lipase is elevated - tend down Anemia - delutional , also on her menstrual period - follow Elevated transaminases - ? shock liver - improving , as per RN exam abd exanm is benign - follow Lines : LEFT ScL 06/24 (Central Line Necessity Reviewed) Rico: 06/24 OG: + Nutrition TF TOLERATED Analgesia: Anxiety/ delirium VTE Prophylaxis: heparin sc Stress Ulcer Prophylaxis: na Glycemic Control: Plans in collaboration with bedside consultants and IM MDs. Discussed with RN to reach out if any questions or concerns A total of 35 minutes of critical care time was devoted to this patient today, required to treat and/or prevent further deterioration of critical care condition ( as above) . YAEL WOMACK MD Jun 27, 2021 08:57
[2021-06-27 10:45] VITALS: BP 91/58
[2021-06-27] MEDS: DexMEDEtomidine 250 ML DRIP 250 ML IV SCH (12:29)
[2021-06-27 13:50] VITALS: BP 92/62
[2021-06-27] MEDS: fentaNYL DRIP PRE-MIX 250 ML IV SCH (17:47)
[2021-06-27 18:42] VITALS: BP 100/74
[2021-06-27] MEDS: D5 1/2 NS 1000 ML IV SOLUTION 1,000 ML IV SCH (22:20)
[2021-06-27 22:28] VITALS: BP 103/70
[2021-06-28] MEDS: PIPERACILLIN/TAZOBACTAM (BULK) 4.5 GM in NS (IVPB) 100 ML IV SCH ×3 (00:24→15:33)
[2021-06-28] MEDS: fentaNYL INJ 100 MCG/2 ML AMP IVP PRN ×2 (00:24→07:42)
[2021-06-28] MEDS: LORazepam INJ 2 MG/ML (ATIVAN) VIAL IVP PRN ×2 (00:25→08:20)
[2021-06-28] MEDS: inSUlin ASPART (NovoLOG) 1 UNIT/0.01 ML (CHARGE PER UNIT) SC SCH ×4 (00:26→16:42)
[2021-06-28 02:23] VITALS: BP 116/81
[2021-06-28 03:21] LABS: BASOPHILS % (AUTO) 0 % (0-10); EOSINOPHILS # (AUTO) 0.2 10^3/uL (0.0-0.3); EOSINOPHILS % (AUTO) 5 % (0-10); HEMATOCRIT 31 % (35-52); HEMOGLOBIN 9.9 g/dL (11.5-16.0); LYMPHOCYTES # (AUTO) 1.3 10^3/uL (1.0-4.0); LYMPHOCYTES % (AUTO) 38 % (12-44); MEAN CORPUSCULAR HEMOGLOBIN 28 pg (25-34); MEAN CORPUSCULAR HGB CONC 33 g/dL (32-36); MEAN CORPUSCULAR VOLUME 85 fL (80-99); MEAN PLATELET VOLUME 9.9 fL (9.0-12.2); MONOCYTES # (AUTO) 0.4 10^3/uL (0.0-1.0); MONOCYTES % (AUTO) 12 % (0-12); NEUTROPHILS # (AUTO) 1.5 10^3/uL (1.8-7.8); NEUTROPHILS % (AUTO) 44 % (42-75); PLATELET COUNT 182 10^3/uL (130-400); WHITE BLOOD COUNT 3.3 10^3/uL (4.3-11.0)
[2021-06-28 03:31] LABS: POTASSIUM 3.6 MMOL/L (3.6-5.0)
[2021-06-28 03:32] LABS: ALBUMIN 2.4 GM/DL (3.2-4.5)
[2021-06-28 03:33] LABS: CALCIUM 8.4 MG/DL (8.5-10.1)
[2021-06-28 03:36] LABS: BILIRUBIN,TOTAL 0.3 MG/DL (0.1-1.0)
[2021-06-28 03:37] LABS: PHOSPHORUS 2.7 MG/DL (2.3-4.7)
[2021-06-28 03:38] LABS: CREATININE SERUM 0.7 MG/DL (0.60-1.30)
[2021-06-28 03:40] LABS: MAGNESIUM 1.8 MG/DL (1.6-2.4)
[2021-06-28] MEDS: KCL 20 MEQ TAB (K-DUR) PO SCH (05:14)
[2021-06-28] MEDS: MAGNESIUM 1 GM/100 ML IVPB 100 ML IV SCH (05:14)
[2021-06-28] MEDS: PROPOFOL DRIP (ICU) 100 ML IV SCH (05:14)
[2021-06-28] MEDS: POTASSIUM CL 10MEQ/50ML IVPB 50 ML IV SCH ×3 (05:29→06:31)
[2021-06-28 05:43] LABS: ABG BASE EXCESS 0.2 MMOL/L (-2.5-2.5); ABG OXYGEN SATURATION 98 % (94-100); ABG PCO2 34 MMHG (35-45); ABG PH 7.46 (7.37-7.43); ABG PO2 84 MMHG (79-93); ABG TCO2 24.9 MMOL/L (21.0-31.0)
[2021-06-28 05:44] LABS: ALLENS TEST YES-POS; INSPIRED O2 21%; PATIENT TEMP 36.2; VENTILATOR YES
[2021-06-28 06:31] VITALS: BP 100/73
[2021-06-28] MEDS: DexMEDEtomidine 250 ML DRIP 250 ML IV SCH (06:31)
--- NOTE | 2021-06-28 08:38 | Tele-ICU Progress Note ---
Subjective Date Seen by a Provider: Jun 28, 2021 Time Seen by a Provider: 08:33 Subjective/Events-last exam called about agitation, has good cough, squeezes hand to commands, not desaturating on suctioning, I do not have a report is she was a difficult intubation as was intubated ast OSH. Pt is agitated, I would extubate and place on 100 FiO2 FM and titrate FiO2 downward Sepsis Event Evaluation Height, Weight, BMI Height: '" Weight: lbs. oz. kg; 26.96 BMI Method: Exam Exam Patient acknowledged, consented, and participated in this virtual visit which was conducted using real time audio/video Vital Signs Date Time Temp Pulse Resp B/P (MAP) Pulse Ox O2 Delivery O2 Flow Rate FiO2 06/28/21 08:00 53 14 94/67 95 Mechanical Ventilator 21.00 06/28/21 08:00 36.0 06/28/21 07:53 97 Mechanical Ventilator 21 06/28/21 07:00 55 06/28/21 07:00 52 13 92/69 97 Mechanical Ventilator 21.00 06/28/21 06:31 55 100/73 06/28/21 06:00 52 14 106/75 97 Mechanical Ventilator 21.00 06/28/21 05:00 47 14 109/78 97 Mechanical Ventilator 21.00 06/28/21 04:00 49 14 109/76 97 Mechanical Ventilator 21.00 06/28/21 04:00 36.2 06/28/21 04:00 97 Mechanical Ventilator 21 06/28/21 03:00 57 14 102/71 97 Mechanical Ventilator 21.00 06/28/21 02:23 57 14 98 21 06/28/21 02:00 56 14 116/81 97 Mechanical Ventilator 21.00 06/28/21 01:00 58 06/28/21 01:00 58 14 113/80 97 Mechanical Ventilator 21.00 06/28/21 00:00 36.5 06/28/21 00:00 57 14 106/80 97 Mechanical Ventilator 21.00 06/28/21 00:00 97 Mechanical Ventilator 21 06/27/21 23:00 49 14 107/75 98 Mechanical Ventilator 21.00 06/27/21 22:28 59 14 97 21 06/27/21 22:00 59 14 103/70 97 Mechanical Ventilator 21.00 06/27/21 21:00 59 14 107/78 93 Mechanical Ventilator 21.00 06/27/21 20:01 97 Mechanical Ventilator 21 06/27/21 20:00 58 14 103/74 96 Mechanical Ventilator 21.00 06/27/21 19:56 36.2 Mechanical Ventilator 21.00 06/27/21 19:00 60 06/27/21 19:00 59 14 100/72 96 Mechanical Ventilator 21.00 06/27/21 18:42 60 14 97 21 06/27/21 18:00 60 14 98/72 97 Mechanical Ventilator 25.00 06/27/21 17:00 61 13 108/81 97 Mechanical Ventilator 25.00 06/27/21 16:13 96 Mechanical Ventilator 21 06/27/21 16:00 65 14 107/78 96 Mechanical Ventilator 25.00 06/27/21 15:00 66 14 105/79 91 Mechanical Ventilator 25.00 06/27/21 14:00 63 14 91/62 96 Mechanical Ventilator 25.00 06/27/21 13:57 Mechanical Ventilator 25.00 06/27/21 13:50 67 14 96 25 06/27/21 13:00 72 14 97/63 98 Mechanical Ventilator 21.00 06/27/21 12:56 70 06/27/21 12:37 36.8 06/27/21 12:29 77 98/62 06/27/21 12:00 96 Mechanical Ventilator 21 06/27/21 12:00 76 14 102/61 93 Mechanical Ventilator 21.00 06/27/21 11:00 82 15 96/59 96 Mechanical Ventilator 21.00 06/27/21 10:45 78 14 96 21 06/27/21 10:00 78 11 96/64 94 Mechanical Ventilator 21.00 06/27/21 09:00 69 14 91/58 99 Mechanical Ventilator 21.00 I & O 06/28/21 07:00 Intake Total 1765 ml Output Total 1425 ml Balance 340 ml Height & Weight Height: '" Weight: lbs. oz. kg; 26.96 BMI Method: General Appearance: No Apparent Distress, WD/WN, Anxious, Other (Intubated and sedated) Respiratory: Lungs Clear, Normal Breath Sounds, No Respiratory Distress, Rhonci, Other (no stridor post extubation, ) Cardiovascular: No Murmur, Bradycardia, Tachycardia Capillary Refill: Less Than 3 Seconds Extremity: Normal Inspection, Non Tender, No Pedal Edema Neurologic/Psychiatric: Other (Sedated) Skin: Normal Color, Warm/Dry Results Lab Laboratory Tests 06/27/21 04:20 06/28/21 03:10 Assessment/Plan Assessment/Plan Extubate and titrate FiO2 ROCKY Lugo MD Jun 28, 2021 08:38
--- NOTE | 2021-06-28 08:52 | Progress Note ---
CYNTHIA MEDINA MED STUDENT 06/28/21 0852: Subjective Date Seen by a Provider: Jun 28, 2021 Time Seen by a Provider: 08:47 Subjective/Events-last exam Patient agitated and restless intermittently through the night. Patient sedated on precedex gtt and had received IV pushes of ativan and fentanyl through the night. Patient was just extuabted a short while ago to NRB mask at 10L and sat's are 99%. No retractions or accessory muscle use noted. No auditory stridor or wheezing noted. Review of Systems General: Other (unobtainable) HEENT: Other (unobtainable) Pulmonary: Other (unobtainable) Cardiovascular: Other (unobtainable) Gastrointestinal: Other (unobtainable) Genitourinary: Other (unobtainable) Musculoskeletal: other (unobtainable) Neurological: Other (unobtainable) Objective Exam Last Set of Vital Signs Vital Signs Date Time Temp Pulse Resp B/P (MAP) Pulse Ox O2 Delivery O2 Flow Rate FiO2 06/28/21 08:00 53 14 94/67 95 Mechanical Ventilator 21.00 06/28/21 08:00 36.0 06/28/21 07:53 21 Capillary Refill : Less Than 3 Seconds I&O Intake and Output 06/28/21 00:00 Intake Total 1765 ml Output Total 1425 ml Balance 340 ml Intake Oral 0 ml IV Total 340 ml Tube Feeding 800 ml Other 625 ml Output Urine Total 1425 ml General: Other (Sedated on precedex gtt. Intermittently agitated and restless. Does not follow commands. ) HEENT: Atraumatic, PERRLA Neck: Supple, No LAD Lungs: Clear to Auscultation Heart: Regular Rate, No Murmurs Abdomen: Normal Bowel Sounds, Soft Extremities: No Clubbing, No Cyanosis, No Edema, Normal Pulses Skin: No Rashes, No Significant Lesion Neuro: Other (RASS score -3. Agitated and restless intermittently. Does not follow commands. ) Psych/Mental Status: Other (see neuro) Results Lab Laboratory Tests 06/27/21 12:22: Glucometer 142H 06/27/21 17:53: Glucometer 99 06/27/21 19:36: Glucometer 93 06/27/21 21:24: Glucometer 123H 06/28/21 00:14: Glucometer 172H 06/28/21 03:10: White Blood Count 3.3L, Red Blood Count 3.57L, Hemoglobin 9.9L, Hematocrit 31L, Mean Corpuscular Volume 85, Mean Corpuscular Hemoglobin 28, Mean Corpuscular Hemoglobin Concent 33, Red Cell Distribution Width 14.7H, Platelet Count 182, Mean Platelet Volume 9.9, Immature Granulocyte % (Auto) 0, Neutrophils (%) (Auto) 44, Lymphocytes (%) (Auto) 38, Monocytes (%) (Auto) 12, Eosinophils (%) (Auto) 5, Basophils (%) (Auto) 0, Neutrophils # (Auto) 1.5L, Lymphocytes # (Auto) 1.3, Monocytes # (Auto) 0.4, Eosinophils # (Auto) 0.2, Basophils # (Auto) 0.0, Immature Granulocyte # (Auto) 0.0, Sodium Level 141, Potassium Level 3.6, Chloride Level 110H, Carbon Dioxide Level 24, Anion Gap 7, Blood Urea Nitrogen 8, Creatinine 0.70, Estimat Glomerular Filtration Rate 92, BUN/Creatinine Ratio 11, Glucose Level 243H, Calcium Level 8.4L, Corrected Calcium 9.7, Phosphorus Level 2.7, Magnesium Level 1.8, Total Bilirubin 0.3, Aspartate Amino Transf (AST/SGOT) 74H, Alanine Aminotransferase (ALT/SGPT) 108H, Alkaline Phosphatase 149H, Total Protein 5.0L, Albumin 2.4L, Triglycerides Level 162H 06/28/21 05:25: Blood Gas Puncture Site LEFT RADIAL, Blood Gas Patient Temperature 36.2, Arterial Blood pH 7.46H, Arterial Blood Partial Pressure CO2 34L, Arterial Blood Partial Pressure O2 84, Arterial Blood HCO3 24, Arterial Blood Total CO2 24.9, Arterial Blood Oxygen Saturation 98, Arterial Blood Base Excess 0.2, Emmanuel Test YES-POS, Blood Gas Ventilator Setting YES, Blood Gas Inspired Oxygen 21% Microbiology 06/24/21 Blood Culture - Preliminary, Resulted No growth 06/24/21 Urine Culture - Final, Complete NO GROWTH 06/24/21 MRSA Screen - Final, Complete MRSA not isolated Assessment/Plan Assessment/Plan Assess & Plan/Chief Complaint Acute respiratory failure -extubated this am to NRB at 10L -sat's 98-100% on mask -no retractions or accessory muscle use -continue to wean 02 as tolerated to keep sats >90% AMS/Encephalopathy -meth withdrawal? -medication delirium DKA -resolved -levemir -SSI accuchecks q6hrs -IVF's Anemia -hgb 9.9 today, stable -probably dilutional Leukocytosis -now slightly leukopenic -prelim blood cultures negative -final urine culture negative -zosyn. Vanco dc'd Transaminitis -etiology unclear -AST 74. ALT 198. Trending down -continue to monitor ADOLPH -resolved -creatinine 0.70 -continue IVF's Hypertriglyceredima -tri's 162 06-28, trending down -can stop monitoring DVT ppx -heparin subQ H/O meth use Lines Left subclavian CVC: 06/24 Rico: 06/24 ROCKY GRAY MD 06/28/21 1428: Assessment/Plan Assessment/Plan Assess & Plan/Chief Complaint On rounds pt looked ready for extubation which was done uneventfully Supervisory-Addendum Brief Verification & Attestation Participated in pt care: history, physical Personally performed: exam Care discussed with: Medical Student Procedures: n/a extubated, will follow, post extubation ABG was ok LAINE SANCHEZ DO 06/29/21 0623: Subjective Subjective/Events-last exam Patient extubated Sugars noted Objective Exam General: Other (Sedated on precedex gtt. Intermittently agitated and restless. Does not follow commands. ) Lungs: Clear to Auscultation Heart: Regular Rate Assessment/Plan Assessment/Plan Assess & Plan/Chief Complaint Continue monitoring closely Supervisory-Addendum Brief Verification & Attestation Participated in pt care: history, MDM, physical Personally performed: exam, history, MDM, supervision of care Care discussed with: Medical Student Procedures: n/a Results interpretation: Verified all documentation Verification and Attestation of Medical Student E/M Service A medical student performed and documented this service in my presence. I reviewed and verified all information documented by the medical student and made modifications to such information, when appropriate. I personally performed the physical exam and medical decision making. Laine Sanchez, Jun 29, 2021,06:23 CYNTHIA MEDINA MED STUDENT Jun 28, 2021 08:52 ROCKY GRAY MD Jun 28, 2021 14:28 LAINE SANCHEZ DO Jun 29, 2021 06:23
[2021-06-28 09:49] LABS: ABG BASE EXCESS 0.2 MMOL/L (-2.5-2.5); ABG OXYGEN SATURATION 85 % (94-100); ABG PCO2 41 MMHG (35-45); ABG PH 7.39 (7.37-7.43); ABG PO2 49 MMHG (79-93)
[2021-06-28 09:52] LABS: ALLENS TEST YES-POS; INSPIRED O2 21%; PATIENT TEMP 36.4; VENTILATOR NO
[2021-06-29] MEDS: inSUlin ASPART (NovoLOG) 1 UNIT/0.01 ML (CHARGE PER UNIT) SC SCH ×6 (00:35→22:13)
[2021-06-29] MEDS: PIPERACILLIN/TAZOBACTAM (BULK) 4.5 GM in NS (IVPB) 100 ML IV SCH (00:36)
[2021-06-29 05:16] LABS: BASOPHILS % (AUTO) 1 % (0-10); EOSINOPHILS # (AUTO) 0.3 10^3/uL (0.0-0.3); EOSINOPHILS % (AUTO) 6 % (0-10); HEMATOCRIT 29 % (35-52); HEMOGLOBIN 9.5 g/dL (11.5-16.0); LYMPHOCYTES # (AUTO) 1.8 10^3/uL (1.0-4.0); LYMPHOCYTES % (AUTO) 29 % (12-44); MEAN CORPUSCULAR HEMOGLOBIN 28 pg (25-34); MEAN CORPUSCULAR HGB CONC 33 g/dL (32-36); MEAN CORPUSCULAR VOLUME 85 fL (80-99); MEAN PLATELET VOLUME 9.8 fL (9.0-12.2); MONOCYTES # (AUTO) 0.5 10^3/uL (0.0-1.0); MONOCYTES % (AUTO) 9 % (0-12); NEUTROPHILS # (AUTO) 3.4 10^3/uL (1.8-7.8); NEUTROPHILS % (AUTO) 55 % (42-75); PLATELET COUNT 280 10^3/uL (130-400); WHITE BLOOD COUNT 6.1 10^3/uL (4.3-11.0)
[2021-06-29 05:29] LABS: ALBUMIN 2.3 GM/DL (3.2-4.5); POTASSIUM 3.1 MMOL/L (3.6-5.0)
[2021-06-29 05:31] LABS: CALCIUM 7.8 MG/DL (8.5-10.1)
[2021-06-29 05:32] LABS: TOTAL PROTEIN 4.6 GM/DL (6.4-8.2)
[2021-06-29 05:33] LABS: BILIRUBIN,TOTAL 0.2 MG/DL (0.1-1.0)
[2021-06-29 05:35] LABS: CREATININE SERUM 0.71 MG/DL (0.60-1.30); PHOSPHORUS 2.9 MG/DL (2.3-4.7)
[2021-06-29 05:38] LABS: MAGNESIUM 1.5 MG/DL (1.6-2.4)
[2021-06-29] MEDS: POTASSIUM CL 10MEQ/50ML IVPB 50 ML IV SCH ×5 (05:43→08:40)
[2021-06-29] MEDS: KCL 20 MEQ TAB (K-DUR) PO SCH (05:44)
[2021-06-29] MEDS: MAGNESIUM 1 GM/100 ML IVPB 100 ML IV SCH ×3 (05:44→06:47)
--- NOTE | 2021-06-29 08:55 | Tele-ICU Progress Note ---
Progress Note video rounds completed 41 y/o admitted with sepsis and DKA. Was intubated, extubated 06/28 Overall doing well VSS LABS: WBC 6.1 Hgb: 9.5 Glu: 107 K low at 3.1 being corrected. PLAN off ahtibiotics Extubated sepsis resolved Glu controllled Focused Exam Height, Weight, BMI Height: '" Weight: lbs. oz. kg; 26.96 BMI Method: Laboratory Tests 06/29/21 05:10 ROCKY LIMA MD Jun 29, 2021 08:55
[2021-06-29] MEDS ORDERED: inSUlin ASPART (NovoLOG) 1 UNIT/0.01 ML (CHARGE PER UNIT) SC SCH (12:00)
[2021-06-29] MEDS ORDERED: ALPRAZolam 0.5 MG (XANAX) TAB PO PRN (14:15)
[2021-06-29] MEDS ORDERED: ENOXAPARIN 40 MG/0.4 ML (LOVENOX) SYR SC SCH (14:15)
[2021-06-29] MEDS ORDERED: IBUPROFEN 600 MG (MOTRIN) TAB PO PRN (14:15)
[2021-06-29] MEDS ORDERED: ACETAMINOPHEN 325 MG TABLET PO PRN (14:15)
--- NOTE | 2021-06-29 14:21 | Progress Note - Hospitalist ---
Subjective HPI/CC On Admission Date Seen by Provider: Jun 29, 2021 Time Seen by Provider: 09:30 Sakshi Alejandro is a 41-year-old female who was transferred from [facility] and admitted with DKA. She is intubated and sedated and unable to provide any history. She was reportedly positive for methamphetamine and required intubat ion due to agitation. She was started on an insulin drip due to diabetic ketoacidosis. Subjective/Events-last exam She is less confused today. She denies any pain. She denies any shortness of breath. She wants to try to eat something. Objective Exam Vital Signs Vital Signs Date Time Temp Pulse Resp B/P (MAP) Pulse Ox O2 Delivery O2 Flow Rate FiO2 06/29/21 13:00 91 06/29/21 12:10 37.0 06/29/21 12:00 19 103/67 95 Room Air 06/28/21 12:00 21 06/28/21 11:00 2.00 Capillary Refill : Less Than 3 Seconds General Appearance: No Apparent Distress, Chronically ill Respiratory: Lungs Clear, Normal Breath Sounds, No Respiratory Distress Cardiovascular: Regular Rate, Rhythm, No Edema, No Murmur Gastrointestinal: Normal Bowel Sounds, Non Tender, Soft Extremity: Normal Inspection, Non Tender, No Pedal Edema Neurologic/Psychiatric: Alert, Oriented x3, Depressed Affect Skin: Normal Color, Warm/Dry Results/Procedures Lab Laboratory Tests 06/29/21 05:10 Patient resulted labs reviewed. Imaging: Reviewed Imaging Report Assessment/Plan Assessment and Plan Assess & Plan/Chief Complaint T1DM with hyperglycemia Increase Levemir Increase Novolog with meals Sliding scale insulin Advance diet Hypokalemia Hypomagnesemia Monitor and replace as needed Delirium Improving Methamphetamine abuse Social work consulted DVT prophylaxis: Lovenox Diabetic ketoacidosis, resolved Endotracheally intubated, resolved Methamphetamine intoxication, resolved Acute kidney injury, resolved Lactic acidosis, resolved Leukocytosis, resolved Urinary tract infection, resolved Diagnosis/Problems Diagnosis/Problems (1) T1DM (type 1 diabetes mellitus) Status: Acute Qualifiers: Diabetes mellitus complication status: with hyperglycemia Qualified Codes: E10.65 - Type 1 diabetes mellitus with hyperglycemia (2) Delirium Status: Acute (3) Hypokalemia Status: Acute (4) Hypomagnesemia Status: Acute (5) DKA, type 1 Status: Resolved Qualifiers: Diabetes mellitus complication detail: without coma Qualified Codes: E10.10 - Type 1 diabetes mellitus with ketoacidosis without coma Resolution Date/Time: 06/29/21 @ 14:19 (6) Methamphetamine intoxication Status: Resolved Resolution Date/Time: 06/29/21 @ 14:19 (7) Endotracheally intubated Status: Resolved Resolution Date/Time: 06/29/21 @ 14:19 (8) Lactic acidosis Status: Resolved Resolution Date/Time: 06/29/21 @ 14:20 (9) ADOLPH (acute kidney injury) Status: Resolved Resolution Date/Time: 06/29/21 @ 14:20 (10) Obesity Status: Chronic (11) Leukocytosis Status: Resolved Resolution Date/Time: 06/29/21 @ 14:20 (12) UTI (urinary tract infection) Status: Resolved Resolution Date/Time: 06/29/21 @ 14:20 YUSUF THOMAS MD Jun 29, 2021 14:21
[2021-06-29] MEDS ORDERED: DEXTROSE 50% 50 ML (IMS) SYR ONE (17:24)
[2021-06-29] MEDS ORDERED: DEXTROSE 50% 50 ML (IMS) SYR IV ONE (17:30)
[2021-06-30 05:39] LABS: BASOPHILS % (AUTO) 0 % (0-10); EOSINOPHILS # (AUTO) 0.3 10^3/uL (0.0-0.3); EOSINOPHILS % (AUTO) 4 % (0-10); HEMATOCRIT 30 % (35-52); HEMOGLOBIN 9.7 g/dL (11.5-16.0); LYMPHOCYTES # (AUTO) 2.7 10^3/uL (1.0-4.0); LYMPHOCYTES % (AUTO) 34 % (12-44); MEAN CORPUSCULAR HEMOGLOBIN 28 pg (25-34); MEAN CORPUSCULAR HGB CONC 33 g/dL (32-36); MEAN CORPUSCULAR VOLUME 85 fL (80-99); MONOCYTES # (AUTO) 0.7 10^3/uL (0.0-1.0); MONOCYTES % (AUTO) 8 % (0-12); NEUTROPHILS # (AUTO) 4.2 10^3/uL (1.8-7.8); NEUTROPHILS % (AUTO) 53 % (42-75); PLATELET COUNT 348 10^3/uL (130-400); WHITE BLOOD COUNT 7.9 10^3/uL (4.3-11.0)
[2021-06-30 05:47] LABS: ALBUMIN 2.3 GM/DL (3.2-4.5)
[2021-06-30 05:48] LABS: POTASSIUM 3.4 MMOL/L (3.6-5.0)
[2021-06-30 05:49] LABS: CALCIUM 7.9 MG/DL (8.5-10.1)
[2021-06-30 05:50] LABS: TOTAL PROTEIN 4.7 GM/DL (6.4-8.2)
[2021-06-30 05:52] LABS: BILIRUBIN,TOTAL 0.1 MG/DL (0.1-1.0)
[2021-06-30 05:53] LABS: PHOSPHORUS 3.7 MG/DL (2.3-4.7)
[2021-06-30 05:54] LABS: CREATININE SERUM 0.68 MG/DL (0.60-1.30)
[2021-06-30 05:57] LABS: MAGNESIUM 1.6 MG/DL (1.6-2.4)
[2021-06-30] MEDS: inSUlin ASPART (NovoLOG) 1 UNIT/0.01 ML (CHARGE PER UNIT) SC SCH ×2 (06:03→07:02)
[2021-06-30] MEDS ORDERED: INSU100I29 SC (10:07)
[2021-06-30] MEDS ORDERED: DEXTROSE 50% 50 ML (IMS) SYR IV ONE (10:45)
[2021-06-30] MEDS ORDERED: inSUlin ASPART (NovoLOG) 1 UNIT/0.01 ML (CHARGE PER UNIT) SC SCH ×2 (11:00→12:00)
--- NOTE | 2021-06-30 12:04 | Discharge Summary ---
Discharge Summary Hospital Course Problems/Dx: (1) T1DM (type 1 diabetes mellitus) Status: Acute Qualifiers: Qualified Codes: E10.65 - Type 1 diabetes mellitus with hyperglycemia (2) Delirium Status: Acute (3) Hypokalemia Status: Acute (4) Hypomagnesemia Status: Acute (5) DKA, type 1 Status: Resolved Qualifiers: Qualified Codes: E10.10 - Type 1 diabetes mellitus with ketoacidosis without coma (6) Methamphetamine intoxication Status: Resolved (7) Endotracheally intubated Status: Resolved (8) Lactic acidosis Status: Resolved (9) ADOLPH (acute kidney injury) Status: Resolved (10) Obesity Status: Chronic (11) Leukocytosis Status: Resolved (12) UTI (urinary tract infection) Status: Resolved Hospital Course Date of Admission: Jun 24, 2021 at 00:21 Admission Diagnosis : Type 1 diabetes mellitus with ketoacidosis Family Physician/Provider: Renata Conrad MD Date of Discharge: 06/30/21 Discharge Diagnosis: Type 1 diabetes mellitus with ketoacidosis Hospital Course: Sakshi Alejandro is a 41-year-old female with past medical history of type 1 diabetes mellitus who was admitted with diabetic ketoacidosis. This was complicated by acute methamphetamine intoxication and agitation. She required intubation and mechanical ventilation for airway protection. She was started on an insulin drip and IV fluids and her blood sugars and acidosis improved. Her lactic acidosis and acute kidney injury resolved. She was successfully extubated and had issues with delirium likely associated with her methamphetamine use. Her delirium resolved. She was a started on a basal bolus insulin regimen. She was requiring less insulin than she had been taking at home. She was instructed to take 10 units twice daily of her Levemir. She was instructed to take NovoLog 5 units with meals plus sliding scale. 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 She was discharged home in stable condition. Labs and Pending Lab Test: Laboratory Tests 06/29/21 15:13: Glucometer 275H 06/29/21 16:53: Glucometer 63L 06/29/21 17:22: Glucometer 52*L 06/29/21 18:04: Glucometer 89 06/29/21 19:32: Glucometer 78 06/29/21 22:09: Glucometer 166H 06/30/21 05:30: White Blood Count 7.9, Red Blood Count 3.47L, Hemoglobin 9.7L, Hematocrit 30L, Mean Corpuscular Volume 85, Mean Corpuscular Hemoglobin 28, Mean Corpuscular Hemoglobin Concent 33, Red Cell Distribution Width 14.4, Platelet Count 348, Mean Platelet Volume 10.0, Immature Granulocyte % (Auto) 1, Neutrophils (%) (Auto) 53, Lymphocytes (%) (Auto) 34, Monocytes (%) (Auto) 8, Eosinophils (%) (Auto) 4, Basophils (%) (Auto) 0, Neutrophils # (Auto) 4.2, Lymphocytes # (Auto) 2.7, Monocytes # (Auto) 0.7, Eosinophils # (Auto) 0.3, Basophils # (Auto) 0.0, Immature Granulocyte # (Auto) 0.1, Sodium Level 140, Potassium Level 3.4L, Chloride Level 106, Carbon Dioxide Level 25, Anion Gap 9, Blood Urea Nitrogen 11, Creatinine 0.68, Estimat Glomerular Filtration Rate 95, BUN/Creatinine Ratio 16, Glucose Level 142H, Calcium Level 7.9L, Corrected Calcium 9.3, Phosphorus Level 3.7, Magnesium Level 1.6, Total Bilirubin 0.1, Aspartate Amino Transf (AST/SGOT) 30, Alanine Aminotransferase (ALT/SGPT) 64H, Alkaline Phosphatase 128, Total Protein 4.7L, Albumin 2.3L 06/30/21 10:26: Glucometer 51*L 06/30/21 11:21: Glucometer 162H Microbiology 06/24/21 Blood Culture - Final, Complete No growth 06/24/21 Urine Culture - Final, Complete NO GROWTH 06/24/21 MRSA Screen - Final, Complete MRSA not isolated Home Meds Active Levemir Flextouch (Insulin Detemir) 100 Unit/1 Ml Insuln.pen 10 Units SC BID 30 Days Reported Novolog Flexpen (Insulin Aspart) 300 Units/3 Ml Solution Units SC QID MDD 120 U NITS USES SLIDING SCALE Assessment/Pt Instructions Take medications as prescribed. Follow-up with your primary care physician. Return with worsening symptoms. Discharge Planning: <30 minutes discharge planning Discharge Instructions Discharge Diet: ADA Diet Activity as Tolerated: Yes Discharge Physical Examination Vital Signs Vital Signs Date Time Temp Pulse Resp B/P (MAP) Pulse Ox O2 Delivery O2 Flow Rate FiO2 06/30/21 09:30 Room Air 06/30/21 08:14 36.5 75 22 104/83 93 06/28/21 12:00 21 06/28/21 11:00 2.00 General Appearance: No Apparent Distress, WD/WN Respiratory: Lungs Clear, Normal Breath Sounds, No Respiratory Distress Cardiovascular: Regular Rate, Rhythm, No Edema, No Murmur Gastrointestinal: Normal Bowel Sounds, Non Tender, Soft Extremity: Normal Inspection, Non Tender, No Pedal Edema Skin: Normal Color, Warm/Dry Neurologic/Psychiatric: Alert, Oriented x3, No Motor/Sensory Deficits, Normal Mood/Affect Allergies: Coded Allergies: No Known Drug Allergies (Unverified , 06/24/21) Discharge Summary Date of Admission Jun 24, 2021 at 00:21 Date of Discharge Discharge Date: Jun 30, 2021 Discharge Time: 12:04 Admission Diagnosis Diabetic ketoacidosis Discharge Diagnosis T1DM with ketoacidosis Acute methamphetamine intoxication (1) T1DM (type 1 diabetes mellitus) Status: Acute Qualifiers: Qualified Codes: E10.65 - Type 1 diabetes mellitus with hyperglycemia (2) Delirium Status: Acute (3) Hypokalemia Status: Acute (4) Hypomagnesemia Status: Acute (5) DKA, type 1 Status: Resolved Qualifiers: Qualified Codes: E10.10 - Type 1 diabetes mellitus with ketoacidosis without coma (6) Methamphetamine intoxication Status: Resolved (7) Endotracheally intubated Status: Resolved (8) Lactic acidosis Status: Resolved (9) ADOLPH (acute kidney injury) Status: Resolved (10) Obesity Status: Chronic (11) Leukocytosis Status: Resolved (12) UTI (urinary tract infection) Status: Resolved YUSUF THOMAS MD Jun 30, 2021 12:04
== END 2021-06-30 13:30 | disposition home or self-care (01) | DRG 637 ==
LOC: ICU 06-24 00:21 → CSD 06-29 16:38
PROVIDERS: ADMIT Family Medicine; ATTEND Internal Medicine
PROC: 5A1955Z Respiratory Ventilation, Greater than 96 Consecutive Hours (ICD-10-PCS; principal; 2021-06-24)
PROC: 0BH17EZ Insertion of Endotracheal Airway into Trachea, Via Natural or Artificial Opening (ICD-10-PCS; 2021-06-24)
DX: E10.10 Type 1 diabetes mellitus with ketoacidosis without coma (principal); J96.00 Acute respiratory failure, unspecified whether with hypoxia or hypercapnia; G93.41 Metabolic encephalopathy; F15.921 Other stimulant use, unspecified with intoxication delirium; N17.9 Acute kidney failure, unspecified; G93.40 Encephalopathy, unspecified; N39.0 Urinary tract infection, site not specified; E86.0 Dehydration; E83.42 Hypomagnesemia; E78.1 Pure hyperglyceridemia; D64.9 Anemia, unspecified; E87.6 Hypokalemia; E83.39 Other disorders of phosphorus metabolism; Z79.4 Long term (current) use of insulin; E66.9 Obesity, unspecified; Z68.29 Body mass index [BMI] 29.0-29.9, adult
CPT/HCPCS: 36415; 71045; 80048; 80053; 80076; 81000; 82010; 82140; 82248; 82805; 82947; 83036; 83605; 83690; 83735; 84100; 84145; 84478; 85007; 85025; 85027; 85610; 87040; 87081; 87088; 94002; 94003; 94799